=== PATIENT | female | born 1975 | race African-American/Black ===

== ENCOUNTER → 2020-06-29 10:12 | Outpatient (BNVA) | payer SELFPAY | PROVIDERS: PCP Internal Medicine; Visit Provider Nurse Practitioner | DX: Z76.89 Persons encountering health services in other specified circumstances (principal) ==

== ENCOUNTER 2020-11-30 10:12 | Emergency (ER) | payer OTHER, SELFPAY ==
[2020-11-30 10:34] VITALS: PULSE 77; RESP 18; TEMP 36.7; O2SAT 100; BMI 32.5
--- NOTE | 2020-11-30 12:31 | ED_ITS ---
HPI - Skin/Abscess/Foreign Bdy General Chief complaint: Skin/Abscess/Foreign Body Stated complaint: lump Time Seen by Provider: 11/30/20 10:17 Source: patient Mode of arrival: ambulatory Limitations: no limitations History of Present Illness complaint: abscess/boil Onset (ago): day(s) (Started on 11/24/2020 worse today) Tetanus up to date: no Location: head (Above right ear) Severity: moderate Quality: aching and constant Pain Consistency: constant Relieving factors: none Exacerbating factors: palpation Context: none Associated symptoms: denies other symptoms Treatments prior to arrival: other (Was seen by PCP and urgent care and placed on p.o. doxycycline and Keflex and is taking as prescribed and no symptomatic relief) Related Data Home Medications Medication Instructions Recorded Confirmed cholecalciferol (vitamin D3) 1 cap PO BEDTIME 09/13/20 11/27/20 acyclovir 400 mg tablet 400 mg PO BID 11/28/20 Previous Rx's Medication Instructions Recorded cephalexin 500 mg capsule 500 mg PO Q12H 10 Days #20 cap 11/27/20 cephalexin 500 mg capsule 500 mg PO QID 7 Days #28 cap 11/28/20 doxycycline hyclate 100 mg tablet 100 mg PO BID 7 Days #14 tab 11/28/20 acetaminophen [Tylenol Extra 1,000 mg PO QID PRN #14 tab 11/30/20 Strength] ibuprofen 800 mg PO Q8H PRN #14 tab 11/30/20 oxycodone 5 mg PO BID PRN #10 tab 11/30/20 Allergies Allergy/AdvReac Type Severity Reaction Status Date / Time No Known Allergies Allergy Verified 11/28/20 11:09 Review of Systems Review of Systems: Constitutional : No Fever, No Chills, Cardiovascular : No Chest Pain, No SOB Respiratory : No Dyspnea Gastrointestinal : No abdominal pain Musculoskeletal : No Joint Swelling Skin : positive skin abscess/cellulitis, No Foreign bodies, No rash,No la cerations Neuro : No Weakness, No Numbness/tingling Psych : No SI/HI/thoughts of self injury Yes all other systems are reviewed and are negative [facility] Past Medical History Attestation statement: The following information was validated with the patient. Medical History Anemia Chronic pain Genital herpes H/O tinea corporis History of positive PPD IBS (irritable bowel syndrome) Obesity Skin lesion of scalp Surgical History H/O right wrist surgery Family History Family History Father No problems noted. Mother Colon cancer Medical history non-contributory Brother No problems noted. Sister No problems noted. Sister No problems noted. Son No problems noted. Daughter No problems noted. Maternal Grandmother HTN (hypertension) Maternal Aunt HTN (hypertension) Social History Social History Household Members: Family Alcohol intake: current Alcohol intake frequency: does not drink Smoking Status: Never smoker Advance Directives: Yes Advance Directives Information Provided: No Advance Directives on File: No Physical Exam Vital Signs: Vital Signs: Last Vital Signs Temp 98.1 F 11/30/20 10:34 Pulse 77 11/30/20 10:34 Resp 18 11/30/20 10:34 Pulse Ox 100 11/30/20 10:34 Body Mass Index 32.5 vital signs have been reviewed as normal and appeared to be correct. Blood pressure normal. Heart rate normal. Respiration rate normal. Temperature normal. Oxygen saturation normal. Appearance: Alert. Oriented X3. No acute distress. Head: Normal external exam. Normocephalic. Atraumatic. No Brito signs noted. No raccoon eyes noted Eyes: PERRLA. EOMI. Conjunctiva and sclera normal. Eyelids normal. ENT: EAC normal. TM's Normal. Pharynx normal. Uvula midline. Moist mucous membranes. Neck: Normal inspection. Neck supple. FROM. No adenopathy. Thyroid Normal. No meningeal signs. No neck mass noted. CVS: Normal heart rate and rhythm. Heart sound normal. No murmurs noted. Pulses normal throughout. Respiratory: No respiratory distress. Painless inspiration. Breath sounds normal. No wheezes/rales/rhonchi noted. Chest nontender. No accessory muscle usage noted or decreased air movement noted. Back: Full range of motion noted. Skin: To the scalp right above the ear patient has moderate erythema and soft tissue swelling and fluctuance consistent with an abscess. No streaking. The rest of the Skin is warm and dry. Normal skin color. Normal skin turgor. No rashes/lesions/lacerations noted. Extremities: Extremities exhibit normal range of motion. Extremities nontender. Neuro: Oriented X 3. No motor deficit. No sensory deficit. Reflexes normal. Procedures Abscess I/D Site: scalp Side (if applicable): right Local Anesthetic: lidocaine 1% Amount of anesthesia used (mL): 3 Technique: needle aspiration and incised with blade Amount of fluid expressed (mL): 4 Sent for culture/gram staining?: No Irrigation: Yes Packing used?: none Complications: other (No complications patient tolerated procedure well.) MDM - Skin/Abscess/Foreign Bdy Medical Records Attestation: I reviewed the patient's medical records. Discharge Plan Discharge Clinical Impression: Abscess, Cellulitis Patient Disposition: Home, Self-Care Instructions: Cellulitis (ED), Abscess (ED) Prescriptions: New ibuprofen 800 mg tablet 800 mg PO Q8H PRN (Reason: pain) Qty: 14 RF: 0 oxycodone 5 mg tablet 5 mg PO BID PRN (Reason: pain) Qty: 10 RF: 0 acetaminophen [Tylenol Extra Strength] 500 mg tablet 1,000 mg PO QID PRN (Reason: fever or pain) Qty: 14 RF: 0 No Action cephalexin 500 mg capsule 500 mg PO Q12H 10 Days Qty: 20 RF: 0 cholecalciferol (vitamin D3) 50 mcg (2,000 unit) capsule 1 cap PO BEDTIME RF: 0 acyclovir 400 mg tablet 400 mg PO BID RF: 0 cephalexin 500 mg capsule 500 mg PO QID 7 Days Qty: 28 RF: 0 doxycycline hyclate 100 mg tablet 100 mg PO BID 7 Days Qty: 14 RF: 0 Referrals: Cammy Mujica MD [Primary Care Provider] - 2 days Stand Alone Forms: Work/School Release Discharge Date/Time: 11/30/20 12:41 Print Language: Maltese
== END 2020-11-30 12:41 | disposition home or self-care (01) ==
PROVIDERS: Emergency Provider Emergency Medicine; PCP Internal Medicine
DX: L02.811 Cutaneous abscess of head [any part, except face] (principal); L03.811 Cellulitis of head [any part, except face]
CPT/HCPCS: 10060; 99283; 99284

== ENCOUNTER → 2021-01-05 09:33 | Outpatient (BNVA) | payer OTHER, SELFPAY | PROVIDERS: PCP Internal Medicine; Referring Provider Internal Medicine; Visit Provider Surgery | DX: L72.0 Epidermal cyst (principal); D23.9 Other benign neoplasm of skin, unspecified | CPT/HCPCS: 99202 ==

== ENCOUNTER 2021-01-26 12:41 | Outpatient (REF) | payer OTHER, SELFPAY ==
[2021-01-26 12:48] VITALS: BMI 30.2
[2021-01-26 12:49] VITALS: BP 125/81; PULSE 72; RESP 16; TEMP 36.3; O2SAT 99
--- NOTE | 2021-01-26 13:12 | P.OP_ITS ---
Operative Note Operative Note Date of Service: 01/26/21 Narrative: Preop diagnosis: Multiple skin lesions, right neck and posterior neck Postop diagnosis: As above Procedure: Excision and cauterization of multiple skin lesions, right neck and posterior neck under local anesthesia Surgeon: Randall Whaley MD The patient is a 45 year female who was sent to the office because of nipple skin lesions the right neck and posterior neck. She pointed to 3 small lesions on the right neck measuring about 1 mm to 3 mm in size that appeared to be papillomatous. She also had 1 lesion on the posterior neck at the occipital area of the scalp, about 4 mm in size. She wanted all these removed. She understood the technique of excision and cauterization under local anesthesia and she was aware of the risks, benefits, and alternatives She was brought to the operating room placed in reclining position. The area of the lesions in the right neck was prepped and draped. Lidocaine 1% was used for local anesthesia. I excised 1 of the bigger lesions using Metzenbaum scissors and this was sent as specimen. I cauterized the excised area for hemostasis using an i-STAT. There were about 3 other smaller lesions about 1 mm in size which were cauterized. I then turned the patient left lateral decubitus position. I prepped and draped the area of the lesion on the posterior neck. I infiltrated this again with lidocaine 1%. I excised this using scissors from its narrow base. I c auterized the excision area with i-STAT. The procedure was then completed. She tolerated procedure well. There were no complications noted. She was given wound care instructions.
--- NOTE | 2021-01-26 13:16 | P.BOP_ITS ---
Brief Operative Note Date of Service: 01/26/21 Pre-op diagnosis: Multiple skin lesions, right neck and posterior neck Post-op diagnosis: same Procedure: Excision and cauterization a multiple skin incisions, right neck, posterior neck under local anesthesia Surgeon: Randall Whaley MD Anesthesia: local Was an Brickmason Supervisor used for this Procedure?: No Estimated blood loss (mL): 0 Pathology: other (Skin lesions) Condition: stable Disposition: other (Home)
== END 2021-01-26 12:42 | disposition home or self-care (01) ==
LOC: HO.MS 12:41
PROVIDERS: PCP Internal Medicine; Visit Provider Surgery
PROC: (CPT 11420; principal; 2021-01-26 13:00)
DX: D23.4 Other benign neoplasm of skin of scalp and neck (principal)
CPT/HCPCS: 11420 ×2; 88304; 88305

== ENCOUNTER 2021-01-30 09:59 | Outpatient (REF) | payer OTHER, SELFPAY ==
--- NOTE | ~2021-01-30 | US_ITS ---
EXAMINATION: US PELVIS, LIMITED/FOLLOW UP CLINICAL INFORMATION: Left lower quadrant pain. COMPARISON: None. TECHNIQUE: Limited ultrasound imaging through the left lower quadrant was performed. FINDINGS: Imaging through the left lower quadrant reveals an ovary measuring 2.6 x 2.4 x 1.8 cm. It appears unremarkable. The left kidney measures 9.9 cm and appears unremarkable. There is no soft tissue mass, hernia or abnormal vascularity in the left lower quadrant. US/US pelvic limited IMPRESSION: Unremarkable left lower quadrant exam.
--- NOTE | ~2021-01-30 | XR_ITS ---
EXAMINATION: XR ABDOMEN WITH DECUBITUS VIEWS CLINICAL INDICATION: Left lower quadrant pain COMPARISON: None TECHNIQUE: Supine and upright views of the abdomen and pelvis FINDINGS: There is stool throughout the colon suggestive of constipation. There are no dilated bowel to suggest obstruction. There is no evidence of free air. There is an IUD in the pelvis. There are no calcifications. Bony structures are unremarkable. XR/XR abdomen w decubitus IMPRESSION: Constipation.
== END 2021-01-30 10:00 | disposition home or self-care (01) ==
LOC: HO.US 09:59
PROVIDERS: Visit Provider Nurse Practitioner
DX: R10.32 Left lower quadrant pain (principal); R10.9 Unspecified abdominal pain; R14.0 Abdominal distension (gaseous); D23.9 Other benign neoplasm of skin, unspecified
CPT/HCPCS: 74021; 76857

== ENCOUNTER → 2021-02-03 11:48 | Outpatient (BNVA) | payer OTHER, SELFPAY | PROVIDERS: PCP Internal Medicine; Referring Provider Internal Medicine; Visit Provider Nurse Practitioner | DX: R10.32 Left lower quadrant pain (principal); R10.9 Unspecified abdominal pain; R14.0 Abdominal distension (gaseous); K63.89 Other specified diseases of intestine; Z80.0 Family history of malignant neoplasm of digestive organs | CPT/HCPCS: 99212 ==

== ENCOUNTER → 2021-02-06 13:15 | Outpatient (BNVA) | payer OTHER, SELFPAY | PROVIDERS: PCP Internal Medicine; Referring Provider Internal Medicine; Visit Provider Surgery | DX: Z48.3 Aftercare following surgery for neoplasm (principal); Z86.018 Personal history of other benign neoplasm | CPT/HCPCS: 99212 ==

== ENCOUNTER 2021-02-23 13:56 | Outpatient (REF) | payer OTHER, SELFPAY ==
[2021-02-23 16:36] LABS: MANUAL DIFF FLAG NO
[2021-02-23 16:39] LABS: Basophils Percent Auto 0.8 % (0-2); Eosinophils Absolute Auto 0.1 X10*3/uL (0.0-0.4); Eosinophils Percent Auto 2.3 % (0-4); Hematocrit 38.3 % (37-47); Hemoglobin 12.1 g/dl (12.0-16.0); Imm Gran Abs Auto 0.01 X10*3/uL (0.00-0.03); Imm Gran Pct Auto 0.2 % (0.0-0.4); Lymphocytes Absolute Auto 2.6 X10*3/uL (1.2-4.9); Lymphocytes Percent Auto 55.8 % (20-40); Mean Corpuscular HGB Conc 31.6 g/dl (31.0-35.0); Mean Corpuscular Hemoglobin 30.8 pg (27.0-33.0); Mean Corpuscular Volume 97.5 fL (80-98); Mean Platelet Volume 11.5 fL (9.4-12.3); Monocytes Absolute Auto 0.2 X10*3/uL (0.1-1.2); Monocytes Percent Auto 5.1 % (2-11); Neutrophils Absolute Auto 1.7 X10*3/uL (2.0-8.3); Neutrophils Percent Auto 35.8 % (45-73); Platelet Count 232 X10*3/uL (160-400); Red Blood Count 3.93 X10*6/uL (4.20-5.50); Red Cell Distribution Width 11.9 % (11.0-16.0); White Blood Count 4.7 X10*3/uL (4.8-10.8)
[2021-02-23 17:26] LABS: Alanine Aminotransferase 38 U/L (0-31); Anion Gap 11 (12-20); Aspartate Amino Transferase 27 U/L (5-31); Blood Urea Nitrogen 5 mg/dL (9-16); Calcium 9.4 mg/dL (8.4-10.2); Carbon Dioxide 28 mmol/L (22-29); Chloride 106 mmol/L (96-108); Cholesterol 153 mg/dL; Estimated Glomerular Filt Rate > 60; Glucose Fasting 81 mg/dL (60-99); HDL Cholesterol 41 mg/dL; LDL Cholesterol Calculated 100 mg/dl; Potassium 4.3 mmol/L (3.3-5.1); Sodium 141 mmol/L (135-145); Triglycerides 60 mg/dL
[2021-02-23 17:46] LABS: Vitamin D 25-OH Total 24.3 ng/mL (>30)
== END 2021-02-23 13:57 | disposition home or self-care (01) ==
LOC: HO.HMGCLDS 13:56
PROVIDERS: PCP Internal Medicine; Visit Provider Internal Medicine
DX: Z00.00 Encounter for general adult medical examination without abnormal findings (principal); K58.1 Irritable bowel syndrome with constipation; K63.89 Other specified diseases of intestine; I10 Essential (primary) hypertension; Z80.0 Family history of malignant neoplasm of digestive organs; Z86.2 Personal history of diseases of the blood and blood-forming organs and certain disorders involving the immune mechanism
CPT/HCPCS: 36415; 80048; 80061; 82306; 84450; 84460; 85025

== ENCOUNTER 2021-03-09 11:02 | Day surgery (SDC) | payer OTHER, SELFPAY ==
[2021-03-02 12:26] VITALS: BMI 31.0
[2021-03-09 11:21] VITALS: BP 128/79; PULSE 63; RESP 16; TEMP 36.4; O2SAT 99
[2021-03-09 11:21] LABS: Urine Pregnancy NEGATIVE (NEGATIVE)
[2021-03-09 11:22] LABS: UPreg QC Valid YES
[2021-03-09] MEDS: Lactated Ringers 1,000 ML 50 ML IVCONT (11:37)
--- NOTE | 2021-03-09 13:17 | P.CONAN_ITS ---
[facility] Active Problems Active Problems: All Active Problems (Updated 02/23/21 @ 13:48 by Cammy richardson MD) Irritable bowel syndrome with constipation (Acute) Hx of iron deficiency anemia (Acute) Small intestinal bacterial overgrowth (SIBO) (Acute) Skin papilloma (Acute) Epidermal inclusion cyst (Acute) Abscess (Acute) Skin lesion of scalp (Acute) LLQ abdominal pain (Acute) Abdominal cramping (Acute) Abdominal bloating (Acute) Family history of colon cancer (Acute) Past Medical History Medical History Anemia Chronic pain Epidermal inclusion cyst Genital herpes H/O tinea corporis History of positive PPD Hx of iron deficiency anemia IBS (irritable bowel syndrome) Irritable bowel syndrome with constipation Obesity Skin lesion of scalp Skin papilloma Family History Family History Father No problems noted. Mother Colon cancer Medical history non-contributory Brother No problems noted. Sister No problems noted. Sister No problems noted. Son No problems noted. Daughter No problems noted. Maternal Grandmother HTN (hypertension) Maternal Aunt HTN (hypertension) Family history of problems with anesthesia: Yes Surgical History Surgical History H/O right wrist surgery History of local excision of skin lesion Hx of neck surgery History of Problems with Anesthesia: No Social History Social History Household Members: Family Are you a primary healthcare consultant to a significant other at home: No Do you presently have visiting nurse or other home services: No Alcohol intake: current Alcohol intake frequency: does not drink Patient Tobacco Use Status: Never used Tobacco e-Cigarette/Vaping Use: Never Used Second Hand Smoke Exposure: No Use of substances other than those prescribed or required for medical reasons: No Are you DNR?: No Advance Directives: No Advance Directives Information Provided: No Advance Directives on File: No Meds Allergies Allergy/AdvReac Type Severity Reaction Status Date / Time No Known Allergies Allergy Verified 03/02/21 12:25 Active Medications: Current Medications Generic Name Dose Route Start Last Admin Trade Name Freq PRN Reason Stop Dose Admin Lactated Ringer's 1,000 mls @ 50 mls/hr 03/09/21 10:30 03/09/21 11:37 Lr IVCONT 50 mls/hr .Q20H IRVIN Administration Home Medications Medication Instructions Recorded Confirmed Last Taken Type cholecalciferol (vitamin D3) 50 1 cap PO BEDTIME 09/13/20 03/02/21 Unknown History mcg (2,000 unit) capsule dicyclomine 20 mg tablet 1 tab PO TID 03/02/21 03/02/21 Unknown History Exam Exam Date and Time: March 09, 2021 1317 Height,Weight and Vital Signs: Height 5 ft 2 in Weight 169 lb 12.095 oz Last Vital Signs Temp 97.5 F 03/09/21 11:21 Pulse 63 03/09/21 11:21 Resp 16 03/09/21 11:21 BP 128/79 03/09/21 11:21 Pulse Ox 99 03/09/21 11:21 Pertinent Lab Results Pertinent Lab Results: Laboratory Tests 03/09/21 11:10 Urine Test NEGATIVE Airway Mallampati Class: III TM Dist: >3cm Neck ROM: Full Assessment and Plan Assessment Anesthesia Assessment: Anesthesia Plan Discussed and Chart Reviewed Final Anesthetic Review Family History of Problems with Anesthesia: Yes History of Problems with Anesthesia: No NPO: Yes ASA Class: II Final Preanesthetic Review: No Changes in Pt Med Stat, Meds/Allgs Chart Reviewed, Consent Obtained/Reviewed and Anes Risks/Benef Reviewed Patient Risk: Low Procedure Risk: Low Anesthetic Plan Anesthetic Plan: MAC: Disposition: Standard PACU
--- NOTE | 2021-03-09 14:09 | MHC.SHP ---
Pre-Procedural Eval Section A Date of Service: 03/09/21 Section B Chief Complaint: hx of malignant neoplasm of digestive organs Relevant Family History (Specify if Yes): Yes Relevant Social History: None Present Medications: see Short Stay Collaborative assessment Medical History: Significant History (Anemia Chronic pain Epidermal inclusion cyst Genital herpes H/O tinea corporis History of positive PPD Hx of iron deficiency anemia IBS (irritable bowel syndrome) Irritable bowel syndrome with constipation Obesity Skin lesion of scalp Skin papilloma) History of Previous Operations: Relevant previous surgery/procedure and date(s) (H/O right wrist surgery History of local excision of skin lesion Hx of neck surgery) Allergies: Allergies Allergy/AdvReac Type Severity Reaction Status Date / Time No Known Allergies Allergy Verified 03/02/21 12:25 Review of Systems Sugical H&P ROS: Negative: Constitution, Cardiovascular, Respiratory, Neurological, Psychiatric, Hem-Onc, Allergic/Immunologic, Gastrointestinal, Genitourinary, Musculoskeletal, Integumentary, Endocrine and Eyes/Ears/Nose/Throat Exam Surgical H&P Exam: Normal: HEENT, Normal: Heart, Normal: Lungs, Normal: Extremities, Normal: Abdomen, Normal: Skin and Normal: Neurological Plan Diagnosis/Plan: Unchanged I have reviewed the history and physical and performed a pertinent physical examination on my patient. No changes have occurred unless specified.
--- NOTE | 2021-03-09 14:11 | PM.OP ---
Brief Operative Note Date of Service: 03/09/21 Pre-op diagnosis: abdo pain Post-op diagnosis: same Procedure: see op note Surgeon: Poppy Jean-Baptiste MD Anesthesia: MAC Was an Fish Hatchery Laborer used for this Procedure?: No Estimated blood loss (mL): 0 Condition: stable Disposition: PACU
--- NOTE | 2021-03-09 14:12 | W.PM.OPN ---
Operative Note Operative Note Date of Service: 03/09/21 Narrative: Operative Information Procedure Description: Colonoscopy COLONOSCOPY Instrument: Olympus variable stiffness pediatric scope 190L Colonoscopy Monitoring: Vital signs and clinical assessment, continuous EKG monitoring, Pulse oximetry, Carbon Dioxide monitoring and blood pressure monitoring were done throughout the procedure. Colon withdrawal time was 10 minutes. Procedure: The patient was placed in the left lateral decubitis position and pre-procedure medications were administered. After a digital rectal examination of the ano-rectum, the video colonoscope was inserted into the rectum and advanced through the colon to the cecum/TI. The colonoscope was slowly withdrawn in a retrograde panoramic fashion and the colon mucosa was carefully examined including a retroflexed view of the rectum. Findings and interventions are described below. Procedure Difficulty:easy Findings: Terminal Ileum-normal, bx taken random colon bx taken Cecum:normal Ascending Colon: normal Transverse Colon -normal Descending Colon: 6-7 mm sessile polyp removed with forceps Sigmoid Colon: normal Rectum: Retroflexion with small internal hemorrhoids, grade I Anorectum - normal Colon preparation: [place] Bowel Preparation Scale Right colon; 2 Transverse colon: 2 Left colon; 3 (0 = Unprepared colon segment with mucosa not seen due to solid stool that cannot be cleared. 1 = Portion of mucosa of the colon segment seen, but other areas of the colon segment not well seen due to staining, residual stool and/or opaque liquid. 2 = Minor amount of residual staining, small fragments of stool and/or opaque liquid, but mucosa of colon segment seen well. 3 = Entire mucosa of colon segment seen well with no residual staining, small fragments of stool or opaque liquid) Impression and Post Procedure Diagnosis: polyp internal hemorrhoids diverticular disease Plan: High fiber diet leaflet Avoid straining at stool, epsom salts and sitz bath, anusol supps or cream Repeat Colonoscopy in 5 years due to polyp and FH of CRC or earlier if clinically indicated Above findings were reviewed with the patient and relevant handouts were provided if indicated.
[2021-03-09 14:40] VITALS: BP 112/65; PULSE 77; RESP 16; TEMP 36.1; O2SAT 99
[2021-03-09 14:55] VITALS: BP 126/74; PULSE 79; RESP 16; TEMP 36.1; O2SAT 99
== END 2021-03-09 15:40 | disposition home or self-care (01) ==
PROVIDERS: PCP Internal Medicine; Visit Provider Internal Medicine Gastroenterology
PROC: 0DJD8ZZ Inspection of Lower Intestinal Tract, Via Natural or Artificial Opening Endoscopic (ICD-10-PCS; CPT 45378; principal; 2021-03-09 12:10)
DX: Z12.11 Encounter for screening for malignant neoplasm of colon (principal); Z80.0 Family history of malignant neoplasm of digestive organs; K63.5 Polyp of colon; K57.30 Diverticulosis of large intestine without perforation or abscess without bleeding; K64.0 First degree hemorrhoids; K58.1 Irritable bowel syndrome with constipation; K63.89 Other specified diseases of intestine; R14.0 Abdominal distension (gaseous); D64.9 Anemia, unspecified; K21.9 Gastro-esophageal reflux disease without esophagitis; B00.9 Herpesviral infection, unspecified; Z79.899 Other long term (current) drug therapy; Z97.5 Presence of (intrauterine) contraceptive device
CPT/HCPCS: 45380; 81025; 88305

== ENCOUNTER → 2021-03-23 11:45 | Outpatient (BNVA) | payer OTHER, SELFPAY | PROVIDERS: PCP Internal Medicine; Visit Provider Nurse Practitioner | DX: K58.1 Irritable bowel syndrome with constipation (principal); K63.89 Other specified diseases of intestine; D12.6 Benign neoplasm of colon, unspecified; R10.32 Left lower quadrant pain; R10.9 Unspecified abdominal pain; R14.0 Abdominal distension (gaseous); Z80.0 Family history of malignant neoplasm of digestive organs | CPT/HCPCS: 99212 ==

== ENCOUNTER 2021-04-03 | Outpatient (REF) | payer OTHER, SELFPAY ==
--- NOTE | ~2021-04-03 | FL_ITS ---
EXAMINATION: XR BARIUM SWALLOW CLINICAL INFORMATION: Dysphagia. COMPARISON: None TECHNIQUE: Routine modified swallow was performed and lateral upright position and present to C6 therapist with diffuse consistencies of liquid and solid barium coated food. FINDINGS: On oral administration of thin, apple puree,, pudding, solid mass or thickening and barium coated cookie there is normal oral mastication and propagation of bolus from the oral cavity through the pharynx into the esophagus without obstruction or narrowing. No laryngeal penetration or aspiration seen. No obstruction. FLUOROSCOPY TIME: 1.1 minute DOSE AREA PRODUCT: 1.775 uGy-m2 (microgray-meter squared) FL/FL barium swallow modified IMPRESSION: Unremarkable modified barium swallow exam. Correlate with speech therapy results
--- NOTE | 2021-04-03 17:12 | MHC.SL.IMP ---
Date of Plan of Treatment: 04/03/21 Onset of Symptoms/Illness: 02/01/21 Date Treatment Started: 04/03/21 Admitting Diagnosis: Anemia Chronic pain Dysphagia Epidermal inclusion cyst Genital herpes Positive PPD Iron deficiency anemia Irritable bowel syndrome Obesity Right shoulder pain Skin lesion of scalp Skin papilloma Primary Speech & Language Diagnosis: R13.12 Oropharyngeal Phase Dysphagia Reason for Today's Visit: 37076 Modified Barium Swallow Study Pre-evaluation Dietary Consistencies: Regular Pre-evaluation Liquid Consistency: Thin Pre-evaluation Medication Administration: Whole with Liquid Medical History: Modified Barium Swallow Study Fluoroscopic Evaluation of Swallowing Function CPT Code 61243 Evaluation Year: 2020 Reason for Study: Patient reports globus sensation. Referring Physician: Cammy Mujica MD Evaluating Clinician: Radha Villa M.A., CCC-CR[employer] Study Number: 1 Patient Name: Oanh Huitron Status: Outpatient, Ambulatory Age: 45 Gender: Female MEDICAL HISTORY: Year of Onset or Diagnosis: 2020 Comorbidities: Anemia Chronic pain Dysphagia Epidermal inclusion cyst Genital herpes Positive PPD Iron deficiency anemia Irritable bowel syndrome Obesity Right shoulder pain Skin lesion of scalp Skin papilloma Current (pre-evaluation) Intake/Diet: Route: PO Diet Grade: Regular Liquid Consistencies: Thin Pre-Study Functional Oral Intake Scale (FOIS): 7- Total oral intake with no restrictions Pain: None reported at time of study Oral Motor Exam Facial Symmetry: Symmetrical Mouth Occlusion: Normal Oral-Facial Teeth Characteristics: Intact/Normal Oral-Facial Lip Pucker Description: Normal Oral-Facial Smile (Lips) Description: Normal Oral-Facial Puff Cheeks Description: Normal Tongue Size: Normal Tongue Excursion Description: Normal Tongue Range of Movement Description: Normal Tongue Speed of Movement Description: Normal Tongue Strength of Movement (against opposing pressure): Normal Tongue Movement Characteristics: Normal/Absent Is patient able to manage secretions?: Yes Food and Liquid Trials: Oral Impairment: Lip Closure: 0=No labial escape Oral Impairment: Tongue Control During Bolus Hold: 0=Cohesive bolus between tongue to palatal seal Oral Impairment: Bolus Preparation/Mastication: 0=Timely and efficient chewing and mashing Oral Impairment: Bolus Transport/Lingual Motion: 0=Brisk tongue motion Oral Impairment: Oral Residue: 0=Complete oral clearance Oral Impairment:Initiation of Pharyngeal Swallow: 2=Bolus head at posterior laryngeal surface of epiglottis Pharyngeal Impairment: Soft Palate Elevation: 0=No bolus between soft palate (SP)/pharyngeal wall (PW) Pharyngeal Impairment: Laryngeal Elevation: 1=Partial thyroid cartilage/arytenoids to epiglottic petiole movement Pharyngeal Impairment: Anterior Hyoid Excursion: 1=Partial anterior movement Pharyngeal Impairment: Epiglottic Movement: 0=Complete inversion Pharyngeal Impairment: Laryngeal Vestibular Closure:: 0=Complete: no air/contrast in laryngeal vestibule Pharyngeal Impairment: Pharyngeal Stripping Wave: 0=Present: complete Pharyngeal Impairment: Pharyngeal Contraction: Did not test Pharyngeal Impairment: Pharyngoesophageal Segment Openin=Complete distension and complete duration: no obstruction of flow Pharyngeal Impairment: Tongue Base (TB) Retraction: 2=Narrow column of contrast/air between TB and posterior PW Pharyngeal Impairment: Pharyngeal Residue: 0=Complete pharyngeal clearance Pharyngeal Impairment: Esophageal Clearance Upright Position: 0=Complete clearance: esophageal coating Impressions and Recommendations Clinical Observations: OBJECTIVE: Time-out: performed at 02:45 Evaluation Start: 02:30; Stop: 02:40 Patient Positioning: Standing Viewing Planes: LATERAL ONLY Contrast: MBSImP? Standardized Protocol using commercially prepared, standardized Barium viscosities, including: Varibar? THIN LIQUID (40% w/v, <15 cps) , 1/2 Shortbread Cookie (1 x1 x.25 ) MBSImP ID: [id number] MBSImP Results: Lip closure for intraoral bolus containment resulted in no labial escape. Tongue control during bolus hold maintained a cohesive bolus held between tongue to palate seal. Bolus preparation and mastication resulted in timely and efficient chewing and mashing. Bolus transport/lingual motion was with brisk tongue motion. Oral residue was not observed. There was complete oral clearance. Initiation of the pharyngeal swallow occurred as the bolus head was at the posterior laryngeal surface of the epiglottis. Soft palate elevation resulted in no bolus between the soft palate and the pharyngeal wall. Laryngeal elevation was decreased, with partial superior movement of the thyroid cartilage/partial approximation of the arytenoids to the epiglottic petiole. Anterior hyoid excursion demonstrated partial anterior movement. Epiglottic movement resulted in complete inversion. Laryngeal vestibular closure was complete, as indicated by no air or contrast within the laryngeal vestibule at the height of the swallow. Pharyngeal stripping wave was present and complete. Pharyngeal contraction could not be determined due to logistical reasons not related to physiologic impairment. Pharyngoesophageal segment opening was completely distended for complete duration with no obstruction of bolus flow. Tongue base retraction allowed a narrow column of contrast or air between the retracted tongue base and the posterior pharyngeal wall. Pharyngeal residue was not present. There was complete pharyngeal clearance. Esophageal clearance in the upright position was complete, with only a coating of contrast, if any. Oral Impairment Score: 2 Pharyngeal Impairment Score: 4 (absence of score, component 13) Esophageal Impairment Score: 0 Laryngeal Penetration and Aspiration: Neither penetration nor aspiration was observed in today's study with Cookie, Thin. ASSESSMENT: This exam was conducted by radiologist and speech language pathologist. Patient was standing for lateral view only. Patient trialed the following liquid and solid consistencies: -5 mL thin liquid barium -cup sip with bolus hold thin liquid barium -consecutive cup sip thin liquid barium -pureed solid (applesauce mixed with barium paste) -ground solid (chicken salad mixed with barium paste) -regular solid (Bree Doone cookie coated with barium paste) -barium tablet swallowed with thin liquid barium No evidence of aspiration or penetration during this exam with solids and liquids. Good oral and pharyngeal clearance. Swallow function deemed within functional limits based on observations made during this exam. Further intervention is not warranted. Patient is recommended to resume unmodified diet regular solids and thin liquids. Patient reports globus sensation with certain foods. She may benefit from consult with G.I. and ENT. Liquid Intake Recommendation: Thin Liquid Intake Strategies: Small Sips Dietary Recommendations: Regular Medication Administration: Whole with Liquid Compensatory Strategies Recommended: Sitting Upright (90 deg) Small Bites and Sips Alternate Liquids/Solids Rate of Ingestion Change Supervision during eating and or drinking: None Needed Recommendation for Speech Therapy: NA:Typical Evaluation Text Comment: Intake Recommendations: Route: PO Diet Grade: Regular Liquid Consistencies: Thin Post-Study Functional Oral Intake Scale (FOIS): 7- Total oral intake with no restrictions Suggested Referrals: The patient might benefit from a referral to: Gastroenterology Indication for Referral: Patient reports globus sensation with spicy food and crumbly consistencies. Otolaryngology Indication for Referral: Patient reports globus sensation. Therapy Recommendations: Therapy will be discontinued Prognosis for Improvement: The prognosis for the patient to meet nutritional needs by mouth is excellent Clinician - Supplemental, Miscellaneous Communication: It is important to note MBSS objective studies are snapshots in time and Patient function might vary with factors such as time of day or concomitant medical conditions. For this reason, the final treatment plan for this patient should rest with their medical care team. Additional recommendations should be considered with the totality of the Patient in mind. Thank for the opportunity to participate in the care of this patient. If you have any questions about the content of this report, please contact the [facility] at [facility]. Education: Education regarding findings from today's study and plans for therapy were provided to Patient only through Verbal Instruction. Understanding was expressed by the Patient only. Voice Over Artist Clinician/Clinical Fellow: No Supervisory Statement: N/A Speech Language Pathologist: Radha Villa M.A., CCC-[employer]
== END 2021-04-03 00:01 | disposition home or self-care (01) ==
LOC: HO.XRAY
PROVIDERS: Visit Provider Internal Medicine
DX: R13.10 Dysphagia, unspecified (principal)
CPT/HCPCS: 74230; 92611

== ENCOUNTER 2021-04-28 14:00 | Outpatient (RCR) | payer OTHER, SELFPAY ==
--- NOTE | 2021-04-20 19:03 | MHC.PT.EP ---
[facility] [place] Office [place] Office [place] Office [address] Maxine Jin [address] [phone] F: [phone] F: [phone] F: [phone] F: [phone] Physical Therapy Plan of Care Date of Evaluation: Date of Surgery: n/a Diagnosis: pain R sh Assessment: Pt is a 45 yo/ F referred to PT for eval/treat of her R sh pain. signs and symptoms are consistent w/ R shoulder dysfunction resulting decreased ability and tolerance to perform overhead activities such as reaching or placing weighted objects on a high self, decreased ability to perform her ADLs such as washing her hair and back, putting on shirt and pants, decreased ability to pick heavy objects, as well as decreased tolerance to lay on the involved side. Functional limitation mentioned above are secondary to restricted ROM, decreased strength, postural impairment, hypomobility of T-spine, and pain. pt is deemed appropriate to receive skilled PT to address her physical impairments and improve her functional abilities. Frequency and Duration: The patient will be seen 2x/wk for 5wk Short Term Goals: Initiate HEP w/ evidence of compliance pt will report less than 4/10 pain w/ activity Fci Goals: pt will be able to wash her hair w/ >2/10 pain pt will be able to place weighted objects on the high self w/ >2/10 pain pt will be able to carry at least 10lb weight w/ less than 2/10 pain. pt will improve her SPADI score by at least 2 MDC; initial score 87/130 Treatment Plan: Modalities to reduce pain, spasms and effusion. Manual therapy to restore motion and function. Therapeutic exercise to improve strength and flexibility. Neuromuscular re-education for posture and balance. Therapeutic activities to return to functional activities of daily living. Electronically signed by: Santino Mccormack PT Please sign and return to therapist. Thank you for your referral.
--- NOTE | 2021-12-13 09:35 | MHC.PT.DC ---
[facility] [place] Office [place] Office [place] Office [address] Maxine Jin [address] [phone] F: [phone] F: [phone] F: [phone] F: [phone] Physical Therapy Discharge Report Diagnosis: pain R sh Date of Surgery: n/a Date of Evaluation: 04/20/21 Date of Discharge: Treatments to Date: 3 Cancellations to Date: No Shows to Date: Discharge Status: Achieved Goals Improved Function Independent with HEP Patient Elected to Stop Discharge Summary: Per last note PT continued performing GHJ mob, PA mob of T spine, and thoracic manip during therapy- pt gained about 95% of her ROM back following the manual tx. reports that her arm does not feel like weight . following manual therapy, pt performed strengthening ther/ex to which pt responded with appropriate fatigue. cont progressing her POC. Patient did not return to PT, DC to HEP. Electronically signed by: Gladis Esparza PT Please sign and return to therapist. Thank you for your referral.
== END 2021-12-13 09:36 | disposition home or self-care (01) ==
LOC: HO.PTCHIC 14:00
PROVIDERS: PCP Internal Medicine; Visit Provider Internal Medicine
DX: M25.511 Pain in right shoulder (principal)
CPT/HCPCS: 97110; 97140; 97161

== ENCOUNTER 2021-10-26 10:00 | Outpatient (RCR) | payer OTHER, SELFPAY ==
--- NOTE | 2021-10-20 12:51 | MHC.PT.EP ---
[facility] [place] Office [place] Office [place] Office [address] Maxine Jin [address] [phone] F: [phone] F: [phone] F: [phone] F: [phone] Physical Therapy Plan of Care Date of Evaluation: Date of Surgery: Diagnosis: R shoulder synovitis/ tenosynovitis. 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 Pt is deemed an appropriate candidate to receive skilled PT in order to address her physical limitations to improve her functional ability. Frequency and Duration: The patient will be seen 2 x / wk x 5 wks. Short Term Goals: Initiate HEP with evidence of compliance. Pt will improve functional IR AROM to at least L 2; initial inferior sacrum. Improve baseline pain with activity to < 5/10, initial: 8/10. Care Home Goals: I with HEP. Pt will be able to place items on high shelf with managed Sx; initial 8/10. Pt will be able to dress pullovers w/o compensation and managed Sx; initial: pain and modified. No longer TTP of anterior shoulder; initial 2+ (moderate). Treatment Plan: Modalities to reduce pain, spasms and effusion. Manual therapy to restore motion and function. Therapeutic exercise to improve strength and flexibility. Neuromuscular re-education for posture and balance. Therapeutic activities to return to functional activities of daily living. Electronically signed by: Santino Mccormack PT. Please sign and return to therapist. Thank you for your referral.
--- NOTE | 2021-12-08 10:13 | MHC.PT.DC ---
[facility] [place] Office [place] Office [place] Office [address] Maxine Jin [address] [phone] F: [phone] F: [phone] F: [phone] F: [phone] Physical Therapy Discharge Report Diagnosis: R shoulder synovitis/ tenosynovitis. Date of Surgery: Date of Evaluation: 10/20/21 Date of Discharge: 12/08/21 Treatments to Date: 3 Cancellations to Date: 2 No Shows to Date: 2 Discharge Status: Visit Non-compliance Discharge Summary: Pt has not attended therapy in > 40 days after logging 2 cancellations and 2 no-show appointments and is DC'd per [facility] attendance policy, thank you. Electronically signed by: Santino Mccormack PT. Please sign and return to therapist. Thank you for your referral.
== END 2021-12-08 10:13 | disposition home or self-care (01) ==
LOC: HO.PTCHIC 10:00
PROVIDERS: PCP Internal Medicine; Visit Provider Internal Medicine
DX: M65.811 Other synovitis and tenosynovitis, right shoulder (principal)
CPT/HCPCS: 97014; 97110; 97161

== ENCOUNTER 2022-10-17 10:03 | Outpatient (REF) | payer OTHER, SELFPAY ==
--- NOTE | ~2022-10-17 | XR_ITS ---
EXAMINATION: XR FOOT, RIGHT CLINICAL INFORMATION: Right foot pain COMPARISON: None TECHNIQUE: AP, lateral, and oblique views of the right foot. FINDINGS: The bones and soft tissues are unremarkable. There is an os aponeurosis plantaris present. No fracture. Alignment is anatomic. Joint spaces are maintained. XR/XR foot RT min 3V IMPRESSION: No acute finding in the right foot to account for the patient's pain.
== END 2022-10-17 10:04 | disposition home or self-care (01) ==
LOC: HO.HMGCX 10:03
PROVIDERS: PCP Internal Medicine; Visit Provider Internal Medicine
DX: M79.671 Pain in right foot (principal)
CPT/HCPCS: 73630

== ENCOUNTER 2022-12-25 09:22 | Outpatient (REF) | payer OTHER, SELFPAY ==
[2022-12-25 11:39] LABS: Eosinophils Absolute Auto 0.1 X10*3/uL (0.0-0.4); Eosinophils Percent Auto 2.5 % (0-4); Hematocrit 39.6 % (37.0-47.0); Hemoglobin 12.7 g/dl (12.0-16.0); Lymphocytes Absolute Auto 2.4 X10*3/uL (1.2-4.9); Lymphocytes Percent Auto 60.1 % (20-40); MANUAL DIFF FLAG SCAN; Mean Corpuscular HGB Conc 32.1 g/dl (31.0-35.0); Mean Corpuscular Hemoglobin 30.8 pg (27.0-33.0); Mean Corpuscular Volume 95.9 fL (80.0-98.0); Monocytes Absolute Auto 0.3 X10*3/uL (0.1-1.2); Monocytes Percent Auto 8.6 % (2-11); Neutrophils Absolute Auto 1.1 x10*3/uL (2.0-8.3); Neutrophils Percent Auto 27.8 % (45-73); Platelet Count 251 X10*3/uL (160-400); Red Blood Count 4.13 X10*6/uL (4.20-5.50); Red Cell Distribution Width 12.2 % (11.0-16.0); SCAN SMEAR FLAG 1
[2022-12-25 12:04] LABS: Alanine Aminotransferase 17 U/L (0-31); Albumin Level 4.3 g/dL (3.5-5.0); Alkaline Phosphatase 104 U/L (39-117); Anion Gap 9 (12-20); Aspartate Amino Transferase 18 U/L (5-31); Bilirubin Total 0.5 mg/dL (0.0-1.0); Blood Urea Nitrogen 5 mg/dL (9-16); Calcium 9.4 mg/dL (8.4-10.2); Carbon Dioxide 30 mmol/L (22-29); Chloride 105 mmol/L (96-108); Cholesterol 178 mg/dL; Estimated Glomerular Filt Rate > 60; Glucose Fasting 90 mg/dL (60-99); HDL Cholesterol 44 mg/dL; LDL Cholesterol Calculated 121 mg/dl; Potassium 4.3 mmol/L (3.3-5.1); Sodium 140 mmol/L (135-145); Total Protein 7.5 g/dL (6.5-8.0); Triglycerides 66 mg/dL; Vitamin D 25-OH Total 24.8 ng/mL (>30)
[2022-12-25 12:36] LABS: SLIDE REVIEW VERIFIED
== END 2022-12-25 09:23 | disposition home or self-care (01) ==
LOC: HO.HMGCLDS 09:22
PROVIDERS: PCP Internal Medicine; Visit Provider Internal Medicine
DX: Z00.01 Encounter for general adult medical examination with abnormal findings (principal); D12.6 Benign neoplasm of colon, unspecified; E55.9 Vitamin D deficiency, unspecified; G43.009 Migraine without aura, not intractable, without status migrainosus; Z86.2 Personal history of diseases of the blood and blood-forming organs and certain disorders involving the immune mechanism; Z80.0 Family history of malignant neoplasm of digestive organs
CPT/HCPCS: 36415; 80053; 80061; 82306; 85025

== ENCOUNTER 2024-01-15 13:35 | Outpatient (AMB) | payer OTHER, SELFPAY ==
--- NOTE | 2024-01-15 13:37 | A.OFFPC_ITS ---
Vital Signs 01/15/24 13:41 Height 5 ft 2 in Weight 174 lb BMI 31.8 BP 128/80 Blood Pressure Location Lt brachial Position Sitting Pulse 75 Pulse Source Pulse Oximeter Pulse Oximetry (%) 98 Oxygen Delivery Method Room Air Intake Visit Reasons: Annual PE~R/S from Dr. Gomes being out/ok Intake Note: Pt is here today for her PE: last mammogram 04/06/21 Allergies No Known Allergies Allergy (Verified 06/08/24 08:36) Medication List - Last Reconciled 01/15/24 by Cammy Mujica MD acetaminophen (Tylenol Extra Strength) 1,000 mg (2 x 500 mg) PO QID PRN bisacodyl (Dulcolax (bisacodyl)) 10 mg (2 x 5 mg) PO BEDTIME 30 days diclofenac sodium 1% 2 grams topical QID PRN levonorgestrel (Mirena) intrauterine Tobacco use date assessed: 01/15/24 Dental Screening Dental Screen Date: 01/15/24 Did you have a dental visit in the last 12 months?: Yes Did you have a dental problem in the last 6 months where you did not have access to dental care?: No Was dental information given to patient?: Patient has dentist HPI Annual PE~R/S from Dr. Gomes being out/ok HPI Details 48-year-old lady of migraine headache, g enital herpes, iron deficiency anemia and leukopenia, here today for physical exam. She is up-to-date with her screening colonoscopy done by Dr. Jean-Baptiste 03/09/2021 with removal of a tubular adenoma polyp, repeat due in 2025. She had a cervical cancer screening done by Dr. Dobbs 01/23/2021 with negative findings. Last mammogram on file was in 2020 done at [facility] also ordered by Dr. Dobbs. 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 Mother Colon cancer Medical history non-contributory Brother No problems noted. Sister No problems noted. Sister No problems noted. Son No problems noted. Daughter No problems noted. Maternal Grandmother HTN (hypertension) Maternal Aunt HTN (hypertension) Social History Household Members: Family Housing: House Are you a primary child care education coordinator to a significant other at home: No Do you presently have visiting nurse or other home services: No Alcohol intake: current Alcohol intake frequency: does not drink Patient Tobacco Use Status: Never used Tobacco e-Cigarette/Vaping Use: Never Used Second Hand Smoke Exposure: No service: No Current occupational status: employed Current occupation: RN Current occupational exposures/hazards: No Cognitive needs: No Hearing needs: No Vision needs: Yes Questionnaire PHQ-9 Over the last 2 weeks, how often have you been bothered by any of the following problems? 1. Little interest or pleasure in doing things: not at all 2. Feeling down, depressed, or hopeless: not at all 3. Trouble falling or staying asleep, or sleeping too much: not at all 4. Feeling tired or having little energy: several days 5. Poor appetite or overeating: not at all 6. Feeling bad about yourself - or that you are a failure or have let yourself or your family down: not at all 7. Trouble concentrating on things, such as reading the newspaper or watching television: not at all 8. Moving or speaking so slowly that other people could have noticed. Or the opposite - being so fidgety or restless that you have been moving around a lot more than usual: not at all 9. Thoughts that you would be better off or of hurting yourself in some way: not at all Total score: 1 Depression Screening Interpretation: Negative Depression Screening Done: Yes [id number] - PHQ-9 Billing: Yes Source: Developed by Drs. Jluis Padilla, Griffin Martino and colleagues, with an educational ailin from [employer]. Thrive Questionnaire Date Thrive assessed: 01/15/24 I am a: Patient What is your living situation today?: I have a steady place to live Within the past 12 months, did the food you bought not last and you didn't have the money to get more?: Never true Within the past 12 months, did you worry whether your food would run out before you got money to buy more?: Never true Do you have trouble paying for medicines?: No Do you have trouble getting transportation to medical appointments?: No Do you have trouble paying your heating and electricity bill?: No Do you have trouble taking care of your child, family member or friend?: No Do you have trouble with day-to-day activities such as bathing, preparing meals, shopping, managing finances, etc.?: No Are you currently unemployed and looking for a job?: No Are you interested in more education?: No THRIVE Score: 0 AUDIT C Alcohol Use Questionnaire (AUDIT-C) 1. How often do you have a drink containing alcohol?: Never Total Score: 0 DIAMOND-7 AMB Questionnaire DIAMOND-7 Date DIAMOND - 7 assessed: 01/15/24 Feeling nervous, anxious, or on edge: 1 = Several days Not being able to stop or control worryin = Not at all Worrying too much about different things: 0 = Not at all Trouble relaxin = Not at all Being so restless that it is hard to sit still: 0 = Not at all Becoming easily annoyed or irritable: 0 = Not at all Feeling afraid as if something awful might happen: 0 = Not at all Total DIAMOND-7 score (0-4 normal; 5-9 mild; 10-14 moderate; 15-21 severe): 1 Source: Developed by Drs. Jluis Padilla, Griffin Martino and colleagues, with an educational ailin from [employer]. DIAMOND-7 Assessment Billing DIAMOND-7 Assessment Tool: DIAMOND-7 Assessment 18431 Review of Systems Const Denies chills, Denies fatigue, Denies fever(s), Denies frequent falls, Denies lethargy and Denies malaise Eyes Denies change in vision (Sees [employer]) and Denies itchy eyes ENT Reports no additional complaints Card Reports no additional complaints Resp Reports no additional complaints GI Denies abdominal pain, Denies melena, Denies bloating, Denies hematochezia and R eports constipation Reports no additional complaints Musc Reports as per HPI Skin/Breast Denies rash Neuro Reports no additional complaints and Denies frequent falls Psych Denies abnormal sleep pattern, Denies anxiety and Denies depression Endo Denies fatigue Zach/Lymph Reports no additional complaints Aller/Immun Denies itchy eyes Physical exam (Primary Care) Vital Signs: Last Vital Signs Pulse 75 01/15/24 13:41 BP 128/80 01/15/24 13:41 Pulse Ox 98 01/15/24 13:41 Oxygen Delivery Method Room Air 01/15/24 13:41 BMI result Body Mass Index 31.8 Tobacco/Smoking Status: Tobacco use Status Tobacco use date assessed 01/15/24 01/15/24 13:47 Patient Tobacco Use Status Never used Tobacco 01/15/24 13:39 e-Cigarette/Vaping Use Never Used 01/15/24 13:39 PHQ-9: PHQ-9 Score PHQ-9: Total score 1 01/15/24 13:55 Depression Screening Interpretation: Negative Thrive Assessment: Date of Thrive Assessment Date Thrive assessed 01/15/24 01/15/24 13:55 Const General: comfortable and no acute distress Nutritional Appearance: obese Orientation/consciousness: patient oriented x3 HENMT Head: Yes normal to inspection and Yes normocephalic Ears: hearing grossly normal bilaterally, external ears normal, TM's normal bilaterally and EAC's normal General nose exam: Normal external nose present Face and sinus: Yes face symmetric Mouth: Normal oral and palatal mucosa present and moist mucous membranes Eyes General: appearance normal, both eyes and all related structures Periorbital: periorbital findings normal Eyelids: Yes eyelids normal Pupils: Equal, round and reactive pupils present EOM: EOMs intact bilaterally Neck Neck: Yes full ROM, Yes no lymphadenopathy and Yes supple Chest Chest palpation & inspection: normal inspection of the chest Breast/axilla palpation: normal palpation of the breasts Resp Effort & Inspection: normal respiratory effort and able to speak in complete sentences Auscultation: clear to auscultation bilaterally Cardio Rate: regular rate Rhythm: regular rhythm Heart sounds: S1 normal heart sound present and S2 normal heart sound present Bruits: no abdominal aortic bruits GI Inspection: Yes normal to inspection Palpation (GI): No Abdominal aortic bruit present, Soft to palpation, nontender, no guarding and no masses Auscultation: normal bowel sounds Other: Currently sees Dr. Dobbs for her routine Pap and pelvic exam, Back/Spine/Pelvis Thoracic/Lumbar Spine: No straight leg raise negative bilaterally, No pain with thoraco-lumbar ROM and paraspinal muscle tenderness bilaterally in the lower lumbar Skin General skin exam: no rashes or lesions noted Neuro General: patient oriented x3, gait normal, tone normal, Normal light touch and pain sensation and no focal motor deficits Cranial nerves: Yes Equal, round and reactive pupils present Extrem General: Yes normal to inspection, Yes full ROM, Yes no joint enlargement, Yes no pedal edema, Yes no calf tenderness and Yes normal gait Psych Appearance: grossly normal and well kempt Mental Status: mental status grossly normal Affect: normal affect Attitude: cooperative Thought process: Normal thought process present Thought content: Normal thought content present Coding Level of Care Code Est Pt Prev Care 40-64y(06291) Diagnoses Annual visit for general adult medical examination with abnormal findings Z00.01 Migraine headache without aura G43.009 Vitamin D deficiency E55.9 Constipation, unspecified constipation type K59.00 Constipation type: unspecified constipation type Additional Codes DIAMOND-7 Assessment Billing - DIAMOND-7 Assessment Tool: DIAMOND-7 Assessment [id number] ([id number])
[2024-01-15 13:41] VITALS: BP 128/80; PULSE 75; O2SAT 98; BMI 31.8
== END 2024-01-15 14:22 | disposition home or self-care (01) ==
PROVIDERS: PCP Internal Medicine; Visit Provider Internal Medicine
DX: Z00.00 Encounter for general adult medical examination without abnormal findings (principal); G43.009 Migraine without aura, not intractable, without status migrainosus; E55.9 Vitamin D deficiency, unspecified; K59.00 Constipation, unspecified
CPT/HCPCS: 99396

== ENCOUNTER 2024-01-15 14:24 | Outpatient (REF) | payer OTHER, SELFPAY ==
[2024-01-15 16:17] LABS: MANUAL DIFF FLAG NO
[2024-01-15 16:26] LABS: Basophils Absolute Auto 0.1 X10*3/uL (0.0-0.2); Basophils Percent Auto 1.3 % (0-2); Eosinophils Absolute Auto 0.1 X10*3/uL (0.0-0.4); Eosinophils Percent Auto 2.7 % (0-4); Hematocrit 38.7 % (37.0-47.0); Hemoglobin 12.1 g/dl (12.0-16.0); Imm Gran Abs Auto 0.01 X10*3/uL (0.00-0.03); Imm Gran Pct Auto 0.3 % (0.0-0.4); Lymphocytes Percent Auto 52.8 % (20-40); Mean Corpuscular HGB Conc 31.3 g/dl (31.0-35.0); Mean Corpuscular Hemoglobin 30.5 pg (27.0-33.0); Mean Corpuscular Volume 97.5 fL (80.0-98.0); Mean Platelet Volume 11.1 fL (9.4-12.3); Monocytes Absolute Auto 0.3 X10*3/uL (0.1-1.2); Monocytes Percent Auto 8.6 % (2-11); Neutrophils Absolute Auto 1.3 x10*3/uL (2.0-8.3); Neutrophils Percent Auto 34.3 % (45-73); Platelet Count 271 X10*3/uL (160-400); Red Blood Count 3.97 X10*6/uL (4.20-5.50); Red Cell Distribution Width 12.4 % (11.0-16.0); White Blood Count 3.7 X10*3/uL (4.8-10.8)
[2024-01-15 16:54] LABS: Alanine Aminotransferase 16 U/L (0-31); Aspartate Amino Transferase 20 U/L (5-31); Cholesterol 174 mg/dL (<200); Glucose Fasting 87 mg/dL (60-99); HDL Cholesterol 47 mg/dL (>40); LDL Cholesterol Calculated 115 mg/dL (<100); Triglycerides 61 mg/dL (<150)
[2024-01-15 17:01] LABS: TSH reflex Free T4 0.94 uIU/mL (0.32-4.0); Vitamin D 25-OH Total 39.8 ng/mL (>30)
== END 2024-01-15 14:25 | disposition home or self-care (01) ==
LOC: HO.HMGCLDS 14:24
PROVIDERS: PCP Internal Medicine; Visit Provider Internal Medicine
DX: Z00.01 Encounter for general adult medical examination with abnormal findings (principal); E55.9 Vitamin D deficiency, unspecified; Z80.0 Family history of malignant neoplasm of digestive organs; D72.819 Decreased white blood cell count, unspecified; K59.00 Constipation, unspecified
CPT/HCPCS: 36415; 80061; 82306; 82947; 84443; 84450; 84460; 85025

== ENCOUNTER 2024-06-01 09:17 | Outpatient (REF) | payer OTHER, SELFPAY ==
[2024-06-01 15:33] LABS: Influenza A PCR NEGATIVE (Negative); Influenza B PCR NEGATIVE (Negative); Resp Syncy Virus RNA Qual PCR NEGATIVE (Negative); SARS COV2 PCR INHOUSE NEGATIVE (Negative)
== END 2024-06-01 09:18 | disposition home or self-care (01) ==
LOC: HO.LNP 09:17
PROVIDERS: Registered Nurse; PCP Internal Medicine
DX: J06.9 Acute upper respiratory infection, unspecified (principal)
CPT/HCPCS: 0241U; 99212

== ENCOUNTER 2024-06-01 09:17 | Outpatient (AMB) | payer OTHER, SELFPAY ==
--- NOTE | 2024-06-01 10:21 | MHC.OFFWIV ---
Intake Vital Signs 06/01/24 10:22 Height 5 ft 2 in Weight 172 lb 2 oz BMI 31.5 BP 130/82 Blood Pressure Location Lt brachial Position Sitting Pulse 71 Pulse Source Pulse Oximeter Pulse Oximetry (%) 98 Oxygen Delivery Method Room Air Intake Visit Reasons: EP Cough [phone] Intake Note: Patient here for cough that has been present for about 1 week. Patient Tobacco Use Status: Never used Tobacco Allergies No Known Allergies Allergy (Verified 06/01/24 10:22) Do you need a note to return to daycare/school/sports/work: No HPI EP Cough [phone] HPI Details This note is constructed using voice recognition software. While every effort has been made to ensure accuracy, restoration ecologist errors may have been included. The patient is a 48 year old female who presents to the clinic today with complaints of cough for the past week. She also notes generalized fatigue, as well as some mild body aches. No fever, chills, shortness of breath. Her son recently was sick with upper respiratory infection. 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 Mother Colon cancer Medical history non-contributory Brother No problems noted. Sister No problems noted. Sister No problems noted. Son No problems noted. Daughter No problems noted. Maternal Grandmother HTN (hypertension) Maternal Aunt HTN (hypertension) Social History Household Members: Family Housing: House Are you a primary direct support professional caregiver to a significant other at home: No Do you presently have visiting nurse or other home services: No Alcohol intake: current Alcohol intake frequency: does not drink Patient Tobacco Use Status: Never used Tobacco e-Cigarette/Vaping Use: Never Used Second Hand Smoke Exposure: No service: No Current occupational status: employed Current occupation: RN Current occupational exposures/hazards: No Cognitive needs: No Hearing needs: No Vision needs: Yes Review of Systems Const All systems reviewed & are unremarkable except as noted in HPI and below Physical Exam Vital Signs: Last Vital Signs Pulse 71 06/01/24 10:22 BP 130/82 06/01/24 10:22 Pulse Ox 98 06/01/24 10:22 Oxygen Delivery Method Room Air 06/01/24 10:22 BMI result Body Mass Index 31.5 Const General: cooperative, healthy appearing, comfortable and no acute distress Orientation/consciousness: patient oriented x3 Limitations: no limitations HEENT Head: Yes normal to inspection Ears: hearing grossly normal bilaterally, external ears normal and TM's normal bilaterally General nose exam: Normal external nose present, Normal nares present and No nasal discharge present Face and sinus: Yes normal facial exam and Yes sinuses nontender Mouth: Normal oral and palatal mucosa present and moist mucous membranes Throat: Yes tonsils normal, Yes uvula midline and Yes posterior oropharynx abnormal (Erythema) Eyes General: appearance normal, both eyes and all related structures Neck Neck: Yes normal visual inspection Resp Effort & Inspection: normal respiratory effort, able to speak in complete sentences, Actively coughing, no respiratory distress, not tachypneic, no tripod positioning and no use of accessory muscles Auscultation: clear to auscultation bilaterally Cardio Jugular venous distension: no JVD Rate: regular rate Rhythm: regular rhythm Heart sounds: S1 normal heart sound present, S2 normal heart sound present, no click, no gallops, no murmurs and no rubs Skin General skin exam: no rashes or lesions noted, elasticity normal and turgor normal Neuro General: patient oriented x3 Extrem General: Yes normal to inspection and Yes no clubbing, cyanosis or edema Assessment & Plan Assessment & Plan (1) URI (upper respiratory infection): Code(s): J06.9 - Acute upper respiratory infection, unspecified Qualifiers: URI type: unspecified URI Qualified Code(s): J06.9 - Acute upper respiratory infection, unspecified Plan: Viral swab obtained to rule out Covid based on symptoms. Advised mask wearing while symptomatic and quarantine per current CDC guidelines. Reviewed at home support methods including hydration, humidification, vix vapor rub, sinus rinse. Advised follow up with worsening symptoms such as dyspnea at rest, which would require emergent evaluation. Plan See above for full details and plan. Orders: Orders SARS-CoV2/FLU/RSV Today J06.9 - Acute upper respiratory infection, unspecified Coding Level of Care Code Est Pt Level 3 (59520) Diagnoses Upper respiratory tract infection, unspecified type J06.9 URI type: unspecified URI
[2024-06-01 10:22] VITALS: BP 130/82; PULSE 71; O2SAT 98; BMI 31.5
== END 2024-06-01 11:21 | disposition home or self-care (01) ==
PROVIDERS: PCP Internal Medicine; Visit Provider Registered Nurse
DX: J06.9 Acute upper respiratory infection, unspecified (principal)

== ENCOUNTER 2024-07-21 08:06 | Outpatient (REF) | payer OTHER, SELFPAY ==
--- NOTE | ~2024-07-21 | XR_ITS ---
EXAMINATION: XR FINGER, RIGHT CLINICAL INFORMATION: S67.10XA - Crushing injury of unspecified finger(s), initial encounter COMPARISON: None available. TECHNIQUE: Three views of the right index finger. FINDINGS: The bones and soft tissues appear unremarkable. No fracture identified. Alignment is anatomic. Joint spaces are maintained. XR/XR finger RT min 2V IMPRESSION: Normal finger radiographs. Electronically signed by: Herber Velasco MD 07/21/2024 10:48 AM [facility]
== END 2024-07-21 08:07 | disposition home or self-care (01) ==
LOC: HO.HMGCX 08:06
PROVIDERS: PCP Internal Medicine; Visit Provider Physician Assistant
DX: S67.190A Crushing injury of right index finger, initial encounter (principal); S60.121A Contusion of right index finger with damage to nail, initial encounter; W23.0XXA Caught, crushed, jammed, or pinched between moving objects, initial encounter; Y93.9 Activity, unspecified; Y92.9 Unspecified place or not applicable; Y99.9 Unspecified external cause status
CPT/HCPCS: 11740; 73140; 99212

== ENCOUNTER 2024-07-21 08:06 | Outpatient (AMB) | payer OTHER, SELFPAY ==
--- NOTE | 2024-07-21 08:15 | AM.OFFWIN_ITS ---
Intake Vital Signs 07/21/24 08:16 Height 5 ft 2 in Weight 174 lb 6 oz BMI 31.9 BP 126/80 Blood Pressure Location Lt brachial Position Sitting Pulse 73 Pulse Source Pulse Oximeter Pulse Oximetry (%) 99 Oxygen Delivery Method Room Air Intake Visit Reasons: EP car door slammed on finger Intake Note: Patient here because she slammed the pointer finger on right hand in car door. Patient Tobacco Use Status: Never used Tobacco Allergies No Known Allergies Allergy (Verified 07/21/24 08:16) Do you need a note to return to daycare/school/sports/work: No HPI HPI Comments History of Present Illness Details History of Present Illness The patient is a 48-year-old female presenting with a subungual hematoma and a suspected finger fracture. The patient reports that her finger was injured when her book got stuck in a car door, which occurred the previous day. The injury has resulted in notable pain and throbbing sensations in the finger, and the patient has observed some blood accumulation beneath the nail. The patient was able to move the affected finger. For pain management, the patient has been taking Motrin and Tylenol. Additionally, she applied lidocaine due to an existing chronic back problem, which provided some relief. The throbbing pain has persisted, prompting the current urgent care visit. The patient describes ongoing soreness and pressure under the nail. There has been no prior intervention for this finger injury before today. Physical Exam General: Cooperative, healthy appearing, comfortable, no acute distress and well developed Orientation: Patient oriented x3 Limitations: No limitations Head: Normal to inspection Ears: Hearing grossly normal bilaterally Nose: Normal External nose present Face and sinus: ormal facial exam Eyes: Appearance normal, both eyes and all related structures Neck: Normal visual inspection and Yes full ROM Respiratory: Normal respiratory effort and able to speak in complete sentences. 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 Mother Colon cancer Medical history non-contributory Brother No problems noted. Sister No problems noted. Sister No problems noted. Son No problems noted. Daughter No problems noted. Maternal Grandmother HTN (hypertension) Maternal Aunt HTN (hypertension) Social History Household Members: Family Housing: House Are you a primary healthcare science specialist to a significant other at home: No Do you presently have visiting nurse or other home services: No Alcohol intake: current Alcohol intake frequency: does not drink Patient Tobacco Use Status: Never used Tobacco e-Cigarette/Vaping Use: Never Used Second Hand Smoke Exposure: No service: No Current occupational status: employed Current occupation: RN Current occupational exposures/hazards: No Cognitive needs: No Hearing needs: No Vision needs: Yes Review of Systems Const All systems reviewed & are unremarkable except as noted in HPI and below Physical Exam Vital Signs: Last Vital Signs Pulse 73 07/21/24 08:16 BP 126/80 07/21/24 08:16 Pulse Ox 99 07/21/24 08:16 Oxygen Delivery Method Room Air 07/21/24 08:16 BMI result Body Mass Index 31.9 Assessment & Plan Assessment & Plan (1) Injury, crush, finger: Code(s): S67.10XA - Crushing injury of unspecified finger(s), initial encounter Qualifiers: Encounter type: initial encounter Qualified Code(s): S67.10XA - Crushing injury of unspecified finger(s), initial encounter Plan: - Subungual Hematoma: A trephination procedure was performed to alleviate the subungual hematoma by creating a small hole to release the accumulated blood, reducing pressure and providing pain relief. The area was sterilized and a sterile dressing was applied. - Suspected Finger Fracture: An x-ray was recommended to ascertain the presence of a fracture of the distal phalanx. My interpretation of the x-ray was that there was no fracture so we just splinted it so she may rest it for the next day or 2. Recommended removing it in 24-48 hours and ensuring she maintains her range of motion. If pain continues, she should follow up with her PCP. If necessary, referral to an orthopedic hand specialist might be considered. Patient was informed and verbally consented to the use of an ambient scribe for clinic note documentation during this visit. (2) Hematoma, subungual, finger, right: Code(s): S60.10XA - Contusion of unspecified finger with damage to nail, initial encounter Qualifiers: Encounter type: initial encounter Qualified Code(s): S60.10XA - Contusion of unspecified finger with damage to nail, initial encounter Plan: as above Coding Level of Care Code Est Pt Level 4 (13106) Diagnoses Crushing injury of finger, initial encounter S67.10XA Encounter type: initial encounter Subungual hematoma of finger of right hand, initial encounter S60.10XA Encounter type: initial encounter
[2024-07-21 08:16] VITALS: BP 126/80; PULSE 73; O2SAT 99; BMI 31.9
== END 2024-07-21 09:26 | disposition home or self-care (01) ==
PROVIDERS: PCP Internal Medicine; Visit Provider Physician Assistant
DX: S67.10XA Crushing injury of unspecified finger(s), initial encounter (principal); S60.10XA Contusion of unspecified finger with damage to nail, initial encounter

== ENCOUNTER 2024-07-23 12:34 | Outpatient (AMB) | payer OTHER, SELFPAY ==
[2024-07-23 12:46] VITALS: BP 138/80; PULSE 65; O2SAT 96; BMI 31.6
--- NOTE | 2024-07-23 12:46 | A.OFFPC_ITS ---
Vital Signs 07/23/24 12:46 Height 5 ft 2 in Weight 173 lb BMI 31.6 BP 138/80 Blood Pressure Location Lt brachial Position Sitting Pulse 65 Pulse Source Pulse Oximeter Pulse Oximetry (%) 96 Oxygen Delivery Method Room Air Intake Visit Reasons: rt shoulder pain Intake Note: Pt is here today c/o Rt shoulder pain, no injury noted on and off 6mo. Allergies No Known Allergies Allergy (Verified 07/23/24 13:12) Medication List - Last Reconciled 07/23/24 by Cammy Mujica MD acetaminophen (Tylenol Extra Strength) 1,000 mg (2 x 500 mg) PO QID PRN bisacodyl (Dulcolax (bisacodyl)) 10 mg (2 x 5 mg) PO BEDTIME 30 days diclofenac sodium 1% 2 grams topical QID PRN levonorgestrel (Mirena) intrauterine Tobacco use date assessed: 07/23/24 Dental Screening Dental Screen Date: 07/23/24 Did you have a dental visit in the last 12 months?: Yes Did you have a dental problem in the last 6 months where you did not have access to dental care?: No Was dental information given to patient?: Patient has dentist HPI rt shoulder pain HPI Details - The patient is a 48-year-old female pr esenting with chronic right shoulder pain. Has been experiencing this on and off for the last several months and has been progressively getting worse. No history of trauma - unable to lift right arm more than 150 degrees without any pain elicited, - Previous physical therapy and diclofen ac gel use were ineffective. - Ibuprofen provides transient relief. - Pain localized to the posterior aspect of the shoulder. - Limited range of motion noted, pain in duced upon doing overhead motion with right arm or right shoulder extension - No imaging or significant evaluations in the last two years; previous x-ray details uncertain. - No associated numbness or tingling in the arm, no accompanying weakness reported. 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 Mother Colon cancer Medical history non-contributory Brother No problems noted. Sister No problems noted. Sister No problems noted. Son No problems noted. Daughter No problems noted. Maternal Grandmother HTN (hypertension) Maternal Aunt HTN (hypertension) Social History Household Members: Family Housing: House Are you a primary dog day care attendant to a significant other at home: No Do you presently have visiting nurse or other home services: No Alcohol intake: current Alcohol intake frequency: does not drink Patient Tobacco Use Status: Never used Tobacco e-Cigarette/Vaping Use: Never Used Second Hand Smoke Exposure: No service: No Current occupational status: employed Current occupation: RN Current occupational exposures/hazards: No Cognitive needs: No Hearing needs: No Vision needs: Yes Questionnaire PHQ-9 Over the last 2 weeks, how often have you been bothered by any of the following problems? 1. Little interest or pleasure in doing things: not at all 2. Feeling down, depressed, or hopeless: not at all 3. Trouble falling or staying asleep, or sleeping too much: not at all 4. Feeling tired or having little energy: not at all 5. Poor appetite or overeating: not at all 6. Feeling bad about yourself - or that you are a failure or have let yourself or your family down: not at all 7. Trouble concentrating on things, such as reading the newspaper or watching television: not at all 8. Moving or speaking so slowly that other people could have noticed. Or the opposite - being so fidgety or restless that you have been moving around a lot more than usual: not at all 9. Thoughts that you would be better off or of hurting yourself in some way: not at all Total score: 0 Source: Developed by Drs. Jluis L. Randy, Griffin Martino and colleagues, with an educational ailin from [employer]. Thrive Questionnaire Date Thrive assessed: 01/15/24 I am a: Patient What is your living situation today?: I have a steady place to live Within the past 12 months, did the food you bought not last and you didn't have the money to get more?: I choose not to answer this question Within the past 12 months, did you worry whether your food would run out before you got money to buy more?: Never true Do you have trouble paying for medicines?: No Do you have trouble getting transportation to medical appointments?: No Do you have trouble paying your heating and electricity bill?: No Do you have trouble taking care of your child, family member or friend?: No Do you have trouble with day-to-day activities such as bathing, preparing meals, shopping, managing finances, etc.?: No Are you currently unemployed and looking for a job?: I choose not to answer this question Are you interested in more education?: I choose not to answer this question Please select the resources that you would like help with: None Currently or been in a relationship where the following occur: No concerns reported THRIVE Score: 0 AUDIT C Alcohol Use Questionnaire (AUDIT-C) 1. How often do you have a drink containing alcohol?: Never Total Score: 0 DIAMOND-7 AMB Questionnaire DIAMOND-7 Date DIAMOND - 7 assessed: 01/15/24 Feeling nervous, anxious, or on edge: 0 = Not at all Not being able to stop or control worryin = Not at all Worrying too much about different things: 0 = Not at all Trouble relaxin = Not at all Being so restless that it is hard to sit still: 0 = Not at all Becoming easily annoyed or irritable: 0 = Not at all Feeling afraid as if something awful might happen: 0 = Not at all Total DIAMOND-7 score (0-4 normal; 5-9 mild; 10-14 moderate; 15-21 severe): 0 Source: Developed by Drs. Jluis Padilla, Griffin Martino and colleagues, with an educational ailin from [employer]. Review of Systems Const All systems reviewed & are unremarkable except as noted in HPI and below Physical exam (Primary Care) Vital Signs: Last Vital Signs Pulse 65 07/23/24 12:46 BP 138/80 07/23/24 12:46 Pulse Ox 96 07/23/24 12:46 Oxygen Delivery Method Room Air 07/23/24 12:46 BMI result Body Mass Index 31.6 Tobacco/Smoking Status: Tobacco use Status Tobacco use date assessed 07/23/24 07/23/24 12:49 Patient Tobacco Use Status Never used Tobacco 07/23/24 12:49 e-Cigarette/Vaping Use Never Used 07/23/24 12:49 PHQ-9: PHQ-9 Score PHQ-9: Total score 0 07/23/24 13:13 Thrive Assessment: Date of Thrive Assessment Date Thrive assessed 01/15/24 07/23/24 12:49 Currently or been in a relationship where the following occur: No concerns reported Const General: comfortable and no acute distress Nutritional Appearance: obese Orientation/consciousness: patient oriented x3 HENMT Head: Yes normal to inspection and Yes normocephalic Ears: external ears normal, TM's normal bilaterally and EAC's normal General nose exam: Normal external nose present Face and sinus: Yes face symmetric Mouth: Normal oral and palatal mucosa present and moist mucous membranes Neck Neck: Yes full ROM, Yes no lymphadenopathy and Yes supple Resp Effort & Inspection: normal respiratory effort and able to speak in complete sentences Auscultation: clear to auscultation bilaterally Cardio Rate: regular rate Rhythm: regular rhythm Heart sounds: S1 normal heart sound present and S2 normal heart sound present Skin General skin exam: no rashes or lesions noted Neuro General: patient oriented x3, gait normal, tone normal, Normal light touch and pain sensation and no focal motor deficits Extrem Other: Pain and listed on doing overhead motion with right arm more than 150 degrees, and on right shoulder extension General: Yes normal to inspection, Yes no joint enlargement, Yes no pedal edema, Yes no calf tenderness and Yes normal gait Coding Level of Care Code Est Pt Level 3 (87390) Diagnoses Chronic pain in right shoulder M25.511; G89.29 Assessment & Plan Assessment & Plan (1) Chronic pain in right shoulder: Code(s): M25.511 - Pain in right shoulder; G89.29 - Other chronic pain Category: Medical Plan: Referred for evaluation by an reservations specialist, as no improvement with physical therapy or conservative measures, and they may suggest an MRI for a clearer understanding of the internal state of the shoulder. Continue taking ibuprofen for symptomatic relief, take it always with a meal . I advised her that if she doesn't hear from orthopedics within ten days, she should contact us. The patient was encouraged to secure patient portal access for direct communication and follow-ups. Orders: Referrals Orthopedics Referral G89.29 - Other chronic pain, M25.511 - Pain in right shoulder
== END 2024-07-23 14:30 | disposition home or self-care (01) ==
PROVIDERS: PCP Internal Medicine; Visit Provider Internal Medicine
DX: M25.511 Pain in right shoulder (principal); G89.29 Other chronic pain

== ENCOUNTER → 2024-07-23 12:34 | Outpatient (BNVA) | payer OTHER, SELFPAY | PROVIDERS: PCP Internal Medicine; Visit Provider Internal Medicine | DX: M25.511 Pain in right shoulder (principal); G89.29 Other chronic pain | CPT/HCPCS: 96127; 99212 ==

== ENCOUNTER 2024-09-16 07:20 | Outpatient (REF) | payer OTHER, SELFPAY ==
--- NOTE | ~2024-09-16 | XR_ITS ---
EXAMINATION: XR SHOULDER, RIGHT CLINICAL INFORMATION: M25.511 - Pain in right shoulder COMPARISON: None available. TECHNIQUE: 3 views of the right shoulder. FINDINGS: The bones and soft tissues are normal. No fracture. Glenohumeral and acromioclavicular alignment is anatomic with normal joint space. No abnormal soft tissue calcifications. XR/XR shoulder RT min 2V IMPRESSION: Normal right shoulder Electronically signed by: Larry Sparrow MD 09/16/2024 10:43 AM [facility]
== END 2024-09-16 07:21 | disposition home or self-care (01) ==
LOC: HO.HOSX 07:20
PROVIDERS: Visit Provider Physician Assistant
DX: M25.511 Pain in right shoulder (principal)
CPT/HCPCS: 73030; 99202

== ENCOUNTER 2024-09-16 08:24 | Outpatient (AMB) | payer OTHER, SELFPAY ==
--- NOTE | 2024-09-16 08:32 | MHC.OFFVIS ---
Vital Signs 09/16/24 08:38 Height 5 ft 2 in Weight 165 lb 5.547 oz BMI 30.2 Intake Visit Reasons: EXERCISE SPECIALIST- RT shoulder pain Intake Note: Oanh is a 48 year old right hand dominant female who presents today for a new patient evaluation of right shoulder pain. No hx of injury. Patient was seen by her PCP who referred to orthopedics. Patient reports that her pain has been ongoing for the last 2 year and that has been progressively getting worse. She states that her pain is mainly posterior in her shoulder and it radiates to her neck. Patient mentions that she has done PT about 2 years ago which didn't help. She has tried and failed Tylenol, NSAIDs, topical cream and lidocaine patches. Allergies No Known Allergies Allergy (Verified 09/16/24 08:36) Medication List - Last Reconciled 09/16/24 by Nguyen Cooley PA-C acetaminophen (Tylenol Extra Strength) 1,000 mg (2 x 500 mg) PO QID PRN bisacodyl (Dulcolax (bisacodyl)) 10 mg (2 x 5 mg) PO BEDTIME 30 days diclofenac sodium 1% 2 grams topical QID PRN levonorgestrel (Mirena) intrauterine HPI HPI EXERCISE SPECIALIST- RT shoulder pain: Details: 48 yo female presents to the office today for right shoulder pain. She states she has pain in back of the shoulder into the trap and neck. She has difficulty and pain with activites such as driving and cleaning. She has pain that goes down into the elbow. She denies n/t. She had physical therapy many years ago for her shoulder with minimal relief. No other treatment to date. 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 Mother Colon cancer Medical history non-contributory Brother No problems noted. Sister No problems noted. Sister No problems noted. Son No problems noted. Daughter No problems noted. Maternal Grandmother HTN (hypertension) Maternal Aunt HTN (hypertension) Social History (Updated 09/16/24 @ 08:38 by Chiquita Pham) Household Members: Family Housing: House Are you a primary residential care facility manager to a significant other at home: No Do you presently have visiting nurse or other home services: No Alcohol intake: current Alcohol intake frequency: does not drink Patient Tobacco Use Status: Never used Tobacco e-Cigarette/Vaping Use: Never Used Second Hand Smoke Exposure: No service: No Current occupational status: employed Current occupation: RN/ right hand dominant Current occupational exposures/hazards: No Cognitive needs: No Hearing needs: No Vision needs: Yes Review of Systems Const All systems reviewed & are unremarkable except as noted in HPI and below Physical Exam Vital Signs: BMI result Body Mass Index 30.2 Const General: cooperative and no acute distress Orientation/consciousness: patient oriented x3 Resp Effort & Inspection: normal respiratory effort and able to speak in complete sentences Cardio Peripheral pulses: Peripheral pulses 2+ throughout Neuro General: patient oriented x3 Extrem Other: Right shoulder normal to inspection she has full range of motion with forward flexion and external rotation. She has limited internal rotation to back pocket. She has tenderness along the trapezium into the cervical spine. She has a positive Aponte. 5/5 rotator cuff strength when compared to contralateral side. Neurovascularly intact. Results Reviewed Results Reviewed: X-rays of the right shoulder obtained in the office today do show mild AC joint arthritis with type 2 acromion. Assessment & Plan Assessment & Plan (1) Impingement of right shoulder: Code(s): M25.811 - Other specified joint disorders, right shoulder Category: Medical (2) Arthritis of right acromioclavicular joint: Code(s): M19.011 - Primary osteoarthritis, right shoulder Category: Medical Plan We discussed options today which include physical therapy and cortisone injections. We will hold off on an injection today. I did put an order in for physical therapy to work on range of motion, rotator cuff and periscapular stabilization. I also gave her a prescription for ibuprofen 800 mg to take 3 times a day for 2 weeks to help with occasional flare-ups. If symptoms persist or worsen over the next several weeks she will make an appointment to discuss cortisone injection otherwise follow up as needed. Orders: Orders XR shoulder RT min 2V Today M25.511 - Pain in right shoulder PT Evaluation and Treatment Today M25.811 - Other specified joint disorders, right shoulder Medications: New ibuprofen 800 mg PO Q8H PRN 90 tabs 3RF pain 30 days S52.209D - Unspecified fracture of shaft of unspecified ulna, subsequent encounter for closed fracture with routine healing Coding Level of Care Code New Pt Level 3 (54470) Complex EM visit Add On G2211 Diagnoses Impingement of right shoulder M25.811 Arthritis of right acromioclavicular joint M19.011
[2024-09-16 08:38] VITALS: BMI 30.2
== END 2024-09-16 08:52 | disposition home or self-care (01) ==
PROVIDERS: PCP Internal Medicine; Visit Provider Physician Assistant
DX: M25.811 Other specified joint disorders, right shoulder (principal); M19.011 Primary osteoarthritis, right shoulder
CPT/HCPCS: 99203

== ENCOUNTER → 2024-09-16 08:26 | Outpatient (BNV) | payer OTHER, SELFPAY | PROVIDERS: Visit Provider Radiology Diagnostic Radiology | DX: M25.511 Pain in right shoulder (principal) | CPT/HCPCS: 73030 ==

== ENCOUNTER 2024-12-01 06:00 | Outpatient (RCR) | payer OTHER, SELFPAY ==
--- NOTE | 2024-10-09 14:54 | MHC.PT.EP ---
[facility] [place] Office [place] Office [place] Office [address] [phone] F: [phone] F: [phone] F: [phone] F: [phone] Physical Therapy Plan of Care Date of Evaluation: 10/09/24 Date of Surgery: none Diagnosis: impingement of the right shoulder Assessment: Patient is a 48 year old R handed female who presents with s/s consistent with impingement of R shoulder, R shoulder pain. She works with daily job demands including [employer] employee. Patient past medical history includes IBS and obesity. Current impairments include pain, posture, ROM, strength, activity tolerance and functional mobility. Functional limitations include decreased ability to dress, sleep, lift, work, reach, and push. Patient is motivated with good rehab potential. Skilled PT will address impairments and functional limitations in order to achieve goals. Frequency and Duration: The patient will be seen 2x/week for 5 weeks Short Term Goals: I with HEP - 2 weeks AROM flex/scaption/abd to 130 - 3 weeks Able to dress pain free - 3 weeks Salon Manager Goals: Strength 4+/5 grossly - 5 weeks Able to sleep and work pain free - 5 weeks SPADI 30/130 or better - 5 weeks . Full AROM pain free - 5 weeks Treatment Plan: Modalities to reduce pain, spasms and effusion. Manual therapy to restore motion and function. Therapeutic exercise to improve strength and flexibility. Neuromuscular re-education for posture and balance. Therapeutic activities to return to functional activities of daily living. Electronically signed by: Terry Payne, PT Please sign and return to therapist. Thank you for your referral.
--- NOTE | 2025-03-02 09:33 | MHC.PT.DC ---
[facility] [place] Office [place] Office [place] Office [address] Maxine Jin [address] [phone] F: [phone] F: [phone] F: [phone] F: [phone] Physical Therapy Discharge Report Diagnosis: impingement of the right shoulder Date of Surgery: none Date of Evaluation: 10/09/24 Date of Discharge: 12/02/24 Treatments to Date: 8 Cancellations to Date: No Shows to Date: Discharge Status: Improved Function Independent with HEP Discharge Summary: 12/01/24: I with HEP. AROM flex 144, scap 138, abd 135. Able to dress pain free. Strength 4+/5 except ER 4/5. SPADI 52/130. Able to sleep and work pain free. Compliant and motivated throughout. Progressed towards or met towards all goals. She will continue with HEP and d/c from PT at this time. 11/27/24: pt has been feeling better overall. reduced tissue tension and improved ROM. flexion to 135 AROM. 11/19/24: pt progressed with strength. no adverse reactions. continue to progress as tolerated with skilled PT for 2 more visits then d/c to HEP. reduced tissue tension at end of treatment. 11/09/24: some discomfort with ER strength. issued updated HEP today no adverse reactions. continue to progress as tolerated. 11/06/24: pt with less s/s overall. able to progress strength intervention without adverse reactions. 10/30/24: pt progressing well with skilled PT. no adverse reactions. inc ant shoulder tissue tension relieved with STM. updated HEP. 10/16/24: pt progressed with skilled PT. painful with flexion/scaption overhead head. continue to progress as tolerated. Patient is a 48 year old R handed female who presents with s/s consistent with impingement of R shoulder, R shoulder pain. She works with daily job demands including [employer] employee. Patient past medical history includes IBS and obesity. Current impairments include pain, posture, ROM, strength, activity tolerance and functional mobility. Functional limitations include decreased ability to dress, sleep, lift, work, reach, and push. Patient is motivated with good rehab potential. Skilled PT will address impairments and functional limitations in order to achieve goals. Electronically signed by: Terry Payne PT Please sign and return to therapist. Thank you for your referral.
== END 2025-03-02 09:34 | disposition home or self-care (01) ==
LOC: HO.PTCHIC 06:00
PROVIDERS: PCP Internal Medicine; Visit Provider Physician Assistant
DX: M25.811 Other specified joint disorders, right shoulder (principal)
CPT/HCPCS: 97110; 97140; 97162

== ENCOUNTER 2025-01-25 20:59 | Emergency (ER) | payer OTHER, SELFPAY ==
--- NOTE | ~2025-01-25 | XR_ITS ---
CLINICAL HISTORY: pain, left scap.region T spine, compression fx? 4 view, chest and left ribs Comparison: None Findings: Bones intact. No dislocations. The visualized lungs are normal. IMPRESSION: No acute rib fractures. This document has been electronically signed by: Tommy Gutierrez MD on 01/25/2025 23:55:39
[2025-01-25 21:08] VITALS: BP 149/78; PULSE 75; RESP 20; TEMP 36.7; O2SAT 97; BMI 31.9
[2025-01-26] MEDS: Ketorolac Tromethamine 15 MG/ML VIAL IM (00:40)
[2025-01-26] MEDS: methocarbamoL 750 MG TABLET PO (00:40)
--- NOTE | 2025-01-26 01:48 | ED_ITS ---
HPI - General Adult General Chief complaint: Back Pain/Injury Stated complaint: back pain Time Seen by Provider: 01/25/25 22:02 Source: patient Limitations: no limitations History of Present Illness ED Provider: Dorina Rascon PA-C HPI narrative: 49-year-old female presents with left upper back pain x1 day. Patient states she is having focal pain in relation to the left scapula, when she performs range of motion of her right upper extremity. Patient states she recently completed physical therapy for shoulder injury/arthritis. Patient denies other overuse injury, neck pain, pain radiating to the arm, paresthesia or weakness of left upper extremity. Related Data Home Medications ?Medication ?Instructions ?Recorded ?Confirmed levonorgestrel 21 mcg/24 hr (up to intrauterine 10/17/22 09/16/24 8 years) 52 mg intrauterine device (Mirena) Previous Rx's ?Medication ?Instructions ?Recorded acetaminophen 500 mg tablet 1,000 mg (2 x 500 mg) PO QID PRN 11/30/20 (Tylenol Extra Strength) fever or pain #14 tabs bisacodyl 5 mg tablet,delayed 10 mg (2 x 5 mg) PO BEDTIME 30 03/23/21 release (Dulcolax (bisacodyl)) days #60 tabs diclofenac sodium 1 % topical gel 2 g topical QID PRN joint pain 10/17/22 #100 grams ibuprofen 800 mg tablet 800 mg PO Q8H PRN pain 30 days #90 09/16/24 tabs ketorolac 10 mg tablet 10 mg PO Q6H PRN pain #20 tabs 01/26/25 methocarbamol 750 mg tablet 750 mg PO Q8H PRN pain #10 tabs 01/26/25 Allergies Allergy/AdvReac Type Severity Reaction Status Date / Time No Known Allergies Allergy Verified 01/25/25 21:13 Review of Systems Review of Systems: Yes all other systems are reviewed and are negative Constitutional: Constitutional: Denies fatigue and Denies fever(s) ENT: Denies neck pain Cardiovascular: Cardiovascular: Denies chest pain and Denies dyspnea Respiratory: Respiratory: Denies cough and Denies dyspnea Musculoskeletal: Musculoskeletal: Reports back pain, Denies arthralgias, Denies muscle weakness, Denies neck pain, Denies numbness and Denies tingling Neurologic: Denies numbness and Denies tingling Endocrine: Endocrine: Denies fatigue [facility] Past Medical History Attestation statement: The following information was validated with the patient. 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 Mother Colon cancer Medical history non-contributory Brother No problems noted. Sister No problems noted. Sister No problems noted. Son No problems noted. Daughter No problems noted. Maternal Grandmother HTN (hypertension) Maternal Aunt HTN (hypertension) Social History Social History (Updated 09/16/24 @ 08:38 by Chiquita Pham) Household Members: Family Housing: House Are you a primary resident care aide to a significant other at home: No Do you presently have visiting nurse or other home services: No Alcohol intake: current Alcohol intake frequency: does not drink Patient Tobacco Use Status: Never used Tobacco e-Cigarette/Vaping Use: Never Used Second Hand Smoke Exposure: No service: No Current occupational status: employed Current occupation: RN/ right hand dominant Current occupational exposures/hazards: No Cognitive needs: No Hearing needs: No Vision needs: Yes Physical Exam ED Vital Signs: Vital Signs - 24 hr 01/25/25 21:08 01/26/25 02:28 Temperature 98.1 F 98.1 F Pulse Rate 75 75 Respiratory Rate 20 20 Blood Pressure 149/78 H 149/78 H Pulse Oximetry 97 97 Oxygen Delivery Method Room Air Room Air BMI result Body Mass Index 31.9 Const Other: Alert well-appearing Orientation/consciousness: patient oriented x3 Resp Effort & Inspection: normal respiratory effort Cardio Other: Normal peripheral perfusion Back/Spine/Pelvis Other: Palpable pain over left paraspinous distribution in relation to the left scapula, no palpable deformity noted, pain elicited with range of motion of right upper extremity Skin Other: Warm dry no rash Neuro General: patient oriented x3, gait normal, no focal motor deficits and CN's II- XI intact bilaterally Psych Other: Cooperative Medications Administered Discontinued Medications Generic Name Dose Route Start Last Admin Trade Name Constantine PRN Reason Stop Dose Admin Ketorolac Tromethamine 15 mg 01/25/25 23:15 01/26/25 00:40 Ketorolac Tromethamine 15 Mg/Ml Vial IM 01/25/25 23:16 15 mg ONCE ONE Administration Methocarbamol 750 mg 01/25/25 23:15 01/26/25 00:40 Methocarbamol 750 Mg Tablet PO 01/25/25 23:16 750 mg ONCE ONE Administration Medical Decision Making Medical Decision Making MDM Narrative: 49-year-old female presents with left upper back pain x1 day. Patient states she is having focal pain in relation to the left scapula, when she performs range of motion of her right upper extremity. Patient states she recently completed physical therapy for shoulder injury/arthritis. Patient denies other overuse injury, neck pain, pain radiating to the arm, paresthesia or weakness of left upper extremity. 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 Furthermore she just completed physical therapy for right upper extremity arthritis. We will order x-rays to err on the side of caution, treating with Toradol and methocarbamol. I have independently reviewed the following tests: Chest x-ray:Findings: Bones intact. No dislocations. The visualized lungs are normal. IMPRESSION: No acute rib fractures. Discharge Plan Discharge Clinical Impression: Acute thoracic myofascial strain Patient Disposition: Home, Self-Care Instructions: Muscle Strain (ED) Additional Instructions: The x-rays of the back and thoracic spine were negative for acute injury, no arthritic changes were noted. Your exam was consistent with musculoskeletal strain. See home care instructions. Take the ketorolac as directed, this is an anti-inflammatory, take it with food. Use the methocarbamol for further pain, this is a muscle relaxant, to note, it will cause drowsiness do not drive or operate machinery while taking this medication. Follow up with your primary care provider as needed. Prescriptions: New ketorolac 10 mg tablet 10 mg PO Q6H PRN (Reason: pain) Qty: 20 0RF Rx Instructions: maximum total duration of 5 days from all oral, intranasal, or parenteral formulations. The patient received an intramuscular dose of Toradol here in the ER methocarbamol 750 mg tablet 750 mg PO Q8H PRN (Reason: pain) Qty: 10 0RF No Action acetaminophen [Tylenol Extra Strength] 500 mg tablet 1,000 mg PO QID PRN (Reason: fever or pain) Qty: 14 0RF Mirena 20 mcg/24 hours (8 yrs) 52 mg intrauterine device intrauterine diclofenac sodium 1 % gel 2 g topical QID PRN (Reason: joint pain) Qty: 100 0RF Rx Instructions: apply to single elbow, wrist or hand; for hand includes palm/fingers/back of hand bisacodyl [Dulcolax (bisacodyl)] 5 mg tablet,delayed release (DR/EC) 10 mg PO BEDTIME 30 Days Qty: 60 6RF ibuprofen 800 mg tablet 800 mg PO Q8H PRN (Reason: pain) 30 Days Qty: 90 3RF Interventions: ED Discharge Assessment Last Done: 01/26/25 02:28 Discharge Date/Time: 01/26/25 02:29 Print Language: Divehi
[2025-01-26 02:28] VITALS: BP 149/78; PULSE 75; RESP 20; TEMP 36.7; O2SAT 97
== END 2025-01-26 02:29 | disposition home or self-care (01) ==
PROVIDERS: Emergency Provider Emergency Medicine; PCP Internal Medicine
DX: S29.012A Strain of muscle and tendon of back wall of thorax, initial encounter (principal); X50.9XXA Other and unspecified overexertion or strenuous movements or postures, initial encounter; Y93.89 Activity, other specified; Y92.810 Car as the place of occurrence of the external cause; Y99.9 Unspecified external cause status
CPT/HCPCS: 71101; 96374; 99284; J1885

== ENCOUNTER → 2025-01-25 23:16 | Outpatient (BNV) | payer OTHER, SELFPAY | PROVIDERS: PCP Internal Medicine; Visit Provider Radiology Diagnostic Radiology | DX: M25.512 Pain in left shoulder (principal) | CPT/HCPCS: 71101 ==

== ENCOUNTER 2025-01-27 15:27 | Emergency (ER) | payer OTHER, SELFPAY ==
--- NOTE | ~2025-01-27 | CT_ITS ---
CLINICAL HISTORY: Intractable left scapular pain, R O PE, dissection CT angiography chest with contrast. 3D Postprocessing. Comparison: None provided Findings: The heart size is normal. RV/LV ratio is normal. Normal thoracic aorta without aneurysms or dissection. No central or large proximal pulmonary emboli. Remaining pulmonary arteries are poorly opacified, not well evaluated. The visualized thyroid and mediastinum are unremarkable. 2 mm nodule in the right middle lobe. Per Fleischner criteria: Low-risk patients: No routine follow-up required. High-risk patients: Optional CT at 12 months. No significant pleural effusion or pneumothorax. Hepatomegaly. Left adrenal gland nodule measuring 2 cm with an average Hounsfield unit of 9, may reflect adenoma. This may be further evaluated with biochemical assay and adrenal protocol imaging if indicated. The bones are intact. IMPRESSION: No evidence of PE or aortic dissection. Additional findings as described. This document has been electronically signed by: Tommy Gutierrez MD on 01/27/2025 23:53:04
--- NOTE | ~2025-01-27 | XR_ITS ---
CLINICAL HISTORY: left scapular pain 2 view chest x-ray Comparison: CR - XR RIBS LT MIN 3V W CXR1V - 01/25/25 23:35 EDT Findings: The lungs are clear. Normal size heart. No acute fracture. IMPRESSION: 1. No acute findings. This document has been electronically signed by: Tommy Gutierrez MD on 01/27/2025 20:06:43
[2025-01-27 15:32] VITALS: BP 181/105; PULSE 110; RESP 22; TEMP 36.7; O2SAT 99; BMI 31.5
--- NOTE | 2025-01-27 15:35 | ED.GENADULT ---
HPI - General Adult General Chief complaint: Extremity Problem Stated complaint: L shoulder pain no injury Time Seen by Provider: 01/27/25 18:32 Source: patient and old records reviewed Mode of arrival: ambulatory Limitations: no limitations History of Present Illness ED Provider: DR. Gabriel HPI narrative: 49-year-old female with left upper back pain x3 days over the left scapula pain is localized to this area with no radiation, no anterior chest wall pain, no shortness of breath, pain is worsening by movement, patient tried to keep herself in supine position face down which relieves the pain, no recent travel, no recent prolonged immobilization, no lower extremity swelling or tenderness. No history of PE or DVT. Patient was seen 2 days ago for same symptoms and was treated for myofascial pain. Patient is back today because pain is worse and no pain medication at home. Related Data Home Medications ?Medication ?Instructions ?Recorded ?Confirmed levonorgestrel 21 mcg/24 hr (up to intrauterine 10/17/22 09/16/24 8 years) 52 mg intrauterine device (Mirena) Previous Rx's ?Medication ?Instructions ?Recorded acetaminophen 500 mg tablet 1,000 mg (2 x 500 mg) PO QID PRN 11/30/20 (Tylenol Extra Strength) fever or pain #14 tabs bisacodyl 5 mg tablet,delayed 10 mg (2 x 5 mg) PO BEDTIME 30 03/23/21 release (Dulcolax (bisacodyl)) days #60 tabs diclofenac sodium 1 % topical gel 2 g topical QID PRN joint pain 10/17/22 #100 grams ibuprofen 800 mg tablet 800 mg PO Q8H PRN pain 30 days #90 09/16/24 tabs ketorolac 10 mg tablet 10 mg PO Q6H PRN pain #20 tabs 01/26/25 methocarbamol 750 mg tablet 750 mg PO Q8H PRN pain #10 tabs 01/26/25 cyclobenzaprine 10 mg tablet 10 mg PO TID PRN muscle spasm #14 01/27/25 tabs oxycodone 5 mg tablet 5 mg PO BID PRN pain #10 tabs 01/27/25 Allergies Allergy/AdvReac Type Severity Reaction Status Date / Time No Known Allergies Allergy Verified 01/27/25 15:34 Review of Systems Review of Systems: All other systems are reviewed and are negative Constitutional: Reports as per HPI and Reports no additional constitutional complaints Eyes: Reports as per HPI and Reports no additional eye complaints Reports system reviewed and no additional complaints, except as documented Cardiovascular: Reports as per HPI and Reports no additional cardiovascular complaints Respiratory: Reports as per HPI and Reports no additional respiratory complaints Gastrointestinal: Reports as per HPI and Reports no additional gastrointestinal complaints Genitourinary: Reports no additional female genitourinary complaints Musculoskeletal: Reports no additional musculoskeletal complaints Skin/Breast: Reports system reviewed and no additional complaints, except as docu Psychiatric: Reports no additional psychiatric complaints Endocrine: Reports no additional endocrine complaints Hematologic/Lymphatic: Reports no additional hematologic/lymphatic complaints Allergic/Immunologic: Reports no additional allergic/immunologic complaints Reports system reviewed and no additional complaints, except as documented and Reports Abnormal speech present COUNT INCLUDES THE [facility] Past Medical History Medical History Chronic pain in right shoulder Constipation Leukopenia Vitamin D deficiency Hx of herpes genitalis Pain of right heel Migraine headache without aura 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 Mother Colon cancer Medical history non-contributory Brother No problems noted. Sister No problems noted. Sister No problems noted. Son No problems noted. Daughter No problems noted. Maternal Grandmother HTN (hypertension) Maternal Aunt HTN (hypertension) Social History Social History Household Members: Family Housing: House Are you a primary respiratory care practitioner to a significant other at home: No Do you presently have visiting nurse or other home services: No Alcohol intake: current Alcohol intake frequency: does not drink Patient Tobacco Use Status: Never used Tobacco e-Cigarette/Vaping Use: Never Used Second Hand Smoke Exposure: No Advance Directives: Yes Advance Directives on File: Yes Advance Directives Date on File: 01/15/24 Do you have a plan to hurt others: No Plan service: No Current occupational status: employed Current occupation: RN/ right hand dominant Current occupational exposures/hazards: No Cognitive needs: No Hearing needs: No Vision needs: Yes Physical Exam ED Vital Signs: Vital Signs - 24 hr 01/27/25 15:32 01/27/25 19:03 01/27/25 21:59 Temperature 98.1 F 98.2 F 97.9 F Pulse Rate 110 H 79 75 Respiratory Rate 22 H 22 H 18 Blood Pressure 181/105 H 170/85 H 143/74 H Pulse Oximetry 99 100 100 Oxygen Delivery Method Room Air Room Air Room Air BMI result Body Mass Index 31.5 Vital signs have been reviewed and appear to be correct. Blood pressure elevated. Heart rate elevated, Respiratory rate elevated, Temperature normal. Oxygen saturation normal. Appearance: Alert. Oriented X3. in acute distress secondary to left scapular pain. Head: Normal external exam. Normocephalic. Atraumatic. No Brito signs noted. No raccoon eyes noted Eyes: PERRLA. EOMI. Conjunctiva and sclera normal. Eyelids normal. ENT: TM's Normal. Pharynx normal. Uvula midline. Moist mucous membranes. No trismus noted. No drooling noted. No muffled voice noted. Neck: Normal inspection. Neck supple. FROM. No adenopathy. Thyroid Normal. No meningeal signs. No neck mass noted. CVS: Normal heart rate and rhythm. Heart sound normal. No murmurs noted. Pulses normal throughout. Respiratory: No respiratory distress. Painless inspiration. Breath sounds normal. No wheezes/rales/rhonchi noted. Chest nontender. No accessory muscle usage noted or decreased air movement noted. Abdomen: Soft and nontender. Bowel sounds normal in all 4 quadrants. No distention noted. No organomegaly noted. No visible injury noted. Back: No CVA tenderness. Full range of motion noted. Skin: Skin warm and dry. Normal skin color. Normal skin turgor. No rashes/lesions/lacerations noted. Extremities: No lower extremity edema. Extremities exhibit normal range of motion. Extremities nontender. Neuro: Oriented X 3. Cranial nerve exam: II-XII are grossly intact No motor deficit. No sensory deficit. Reflexes normal. Course Course Course Narrative: RME, this is a rapid medical exam performed by Rhys Carpenter please refer to primary provider for complete H&P- 49-year-old female presents for evaluation of left posterior shoulder pain. She was seen here a few days ago for similar and was given ketorolac and methocarbamol. She reports this is not helping. Denies any injury. Her pain is worse with sitting. Plan for labs this was not done at the last visit. I do suspect musculoskeletal origin is most likely Reevaluation(s) Reevaluation #1: Left scapular pain with no trauma, chest x-ray shows no fracture, no other intrathoracic abnormality on the chest x-ray. EKG shows no acute changes troponin is slightly elevated with no delta change the case was discussed and reviewed by Dr. Winters on-call for Cardiology patient will be safe to be discharged home with pain control, does not think it is cardiac event. Because the left scapular pain was not precipitated by any other injuries will consider CT with IV contrast to rule out any occult pulmonary embolism/dissection. Case signed out to Dr. Templeton. Time: 21:00 Medications Administered Discontinued Medications Generic Name Dose Route Start Last Admin Trade Name Freq PRN Reason Stop Dose Admin Ibuprofen 600 mg 01/27/25 18:56 01/27/25 19:22 Ibuprofen 600 Mg Tablet PO 01/27/25 18:57 600 mg ONCE ONE Administration Iohexol 75 ml 01/27/25 22:25 01/27/25 22:26 Iohexol 350 Mg/Ml 100 Ml Infus..Btl IV 01/27/25 22:26 75 ml ONCE ONE Administration Oxycodone HCl 5 mg 01/27/25 18:56 01/27/25 19:22 Oxycodone Hcl Immed Release 5 Mg Tablet PO 01/27/25 18:57 5 mg ONCE ONE Administration Oxycodone HCl 5 mg 01/27/25 23:45 01/27/25 23:55 Oxycodone Hcl Immed Release 5 Mg Tablet PO 01/27/25 23:46 5 mg ONCE ONE Administration Medical Decision Making Medical Decision Making [facility] Narrative: I received sign-out from my colleague Dr. Gabriel. CT scan of the chest/shoulder does not show any acute abnormality, no evidence of PE or aortic dissection. Patient seems to be doing better with p.o. oxycodone Differential Diagnosis Differential Diagnoses: The differential diagnosis associated with the presentation includes (ACS, pulmonary embolism, rib fracture, scapular fracture, pneumonia, pneumothorax, myofascial thoracic pain.) Admission/Observation Consideration of admission/observation: Escalation of care including admission/observation considered Consult Healthcare Provider Management of the patient was discussed with: Blood Bank Custodian (Dr. Winters) Lab Data MDM Lab Attestation statement: I reviewed the patient's lab results. 01/27/25 15:52 01/27/25 15:52 Labs: Lab Results 01/27/25 01/27/25 Range/Units 15:52 19:16 WBC 5.2 (4.8-10.8) X10*3/uL RBC 4.15 L (4.20-5.50) X10*6/uL Hgb 12.8 (12.0-16.0) g/dl Hct 38.3 (37.0-47.0) % MCV 92.3 (80.0-98.0) fL MCH 30.8 (27.0-33.0) pg MCHC 33.4 (31.0-35.0) g/dl RDW 12.4 (11.0-16.0) % Plt Count 276 (160-400) X10*3/uL MPV 10.2 (9.4-12.3) fL Immature Gran % (Auto) 0.2 (0.0-0.4) % Neut % (Auto) 37.0 L (45-73) % Lymph % (Auto) 53.4 H (20-40) % Slope % (Auto) 6.7 (2-11) % Eos % (Auto) 1.9 (0-4) % Baso % (Auto) 0.8 (0-2) % Lymph # (Auto) 2.8 (1.2-4.9) X10*3/uL Slope # (Auto) 0.4 (0.1-1.2) X10*3/uL Eos # (Auto) 0.1 (0.0-0.4) X10*3/uL Baso # (Auto) 0.0 (0.0-0.2) X10*3/uL Abs Immat Gran (auto) 0.01 (0.00-0.03) X10*3/uL Absolute Neuts (auto) 1.9 L (2.0-8.3) x10*3/uL Absolute Nucleated RBC 0.000 (0.0-0.012) X10*3/uL Nucleated RBC % (auto) 0.0 (0.0-0.2) /100WBC D-Dimer High Sensitivty < 150 NG/ML Sodium 143 (135-145) mmol/L Potassium 3.4 (3.3-5.1) mmol/L Chloride 108 (96-108) mmol/L Carbon Dioxide 25 (22-29) mmol/L Anion Gap 13 (12-20) BUN 8 L (9-16) mg/dL Creatinine 0.66 (0.5-1.4) mg/dL Estim Creat Clear Calc 97.6 Estimated GFR > 60 Random Glucose 93 (60-115) mg/dL Calcium 9.6 (8.4-10.2) mg/dL Total Bilirubin 0.4 (0.0-1.0) mg/dL AST 23 (5-31) U/L ALT 19 (0-31) U/L Alkaline Phosphatase 104 (39-117) U/L Troponin I High Sens 19.1 H 21.9 H (<3.5-17.0) ng/L Total Protein 8.1 H (6.5-8.0) g/dL Albumin 4.7 (3.5-5.0) g/dL Lipase 11 (8-78) U/L Independent Interpretation I performed an independent interpretation of an: Plain X-Ray (Chest: No acute intrathoracic pathology.) Radiology Impression Discussion of test interpretation with radiology: I have reviewed the radiologist's reading. Radiologist Impression: The heart size is normal. RV/LV ratio is normal. Normal thoracic aorta without aneurysms or dissection. No central or large proximal pulmonary emboli. Remaining pulmonary arteries are poorly opacified, not well evaluated. The visualized thyroid and mediastinum are unremarkable. 2 mm nodule in the right middle lobe. Per Fleischner criteria: Low-risk patients: No routine follow-up required. High-risk patients: Optional CT at 12 months. No significant pleural effusion or pneumothorax. Hepatomegaly. Left adrenal gland nodule measuring 2 cm with an average Hounsfield unit of 9, may reflect adenoma. This may be further evaluated with biochemical assay and adrenal protocol imaging if indicated. The bones are intact. IMPRESSION: No evidence of PE or aortic dissection. Additional findings as described. Discharge Plan Discharge Clinical Impression: Myofascial pain on left side Patient Disposition: Home, Self-Care Instructions: Musculoskeletal Pain (ED) Prescriptions: New oxycodone 5 mg tablet 5 mg PO BID PRN (Reason: pain) Qty: 10 0RF Rx Instructions: Partial Fill upon patient request. cyclobenzaprine 10 mg tablet 10 mg PO TID PRN (Reason: muscle spasm) Qty: 14 0RF No Action acetaminophen [Tylenol Extra Strength] 500 mg tablet 1,000 mg PO QID PRN (Reason: fever or pain) Qty: 14 0RF ketorolac 10 mg tablet 10 mg PO Q6H PRN (Reason: pain) Qty: 20 0RF Rx Instructions: maximum total duration of 5 days from all oral, intranasal, or parenteral formulations. The patient received an intramuscular dose of Toradol here in the ER methocarbamol 750 mg tablet 750 mg PO Q8H PRN (Reason: pain) Qty: 10 0RF Mirena 20 mcg/24 hours (8 yrs) 52 mg intrauterine device intrauterine diclofenac sodium 1 % gel 2 g topical QID PRN (Reason: joint pain) Qty: 100 0RF Rx Instructions: apply to single elbow, wrist or hand; for hand includes palm/fingers/back of hand bisacodyl [Dulcolax (bisacodyl)] 5 mg tablet,delayed release (DR/EC) 10 mg PO BEDTIME 30 Days Qty: 60 6RF ibuprofen 800 mg tablet 800 mg PO Q8H PRN (Reason: pain) 30 Days Qty: 90 3RF Referrals: Cammy Mujica MD [Primary Care Provider, Internal Medicine] Print Language: Malay
--- NOTE | 2025-01-27 15:36 | ECG_ITS ---
Test Reason : PAIN Blood Pressure : */* mmHG Vent. Rate : 87 BPM Atrial Rate : 87 BPM P-R Int : 140 ms QRS Dur : 86 ms QT Int : 358 ms P-R-T Axes : 39 -22 6 degrees QTcB Int : 430 ms Normal sinus rhythm Minimal voltage criteria for LVH, may be normal variant ( R in aVL ) Borderline ECG No previous ECGs available Referred By: Mark Carpenter Electronically Signed By: Homer Winters
[2025-01-27 16:03] LABS: MANUAL DIFF FLAG NO
[2025-01-27 16:04] LABS: Basophils Percent Auto 0.8 % (0-2); Eosinophils Absolute Auto 0.1 X10*3/uL (0.0-0.4); Eosinophils Percent Auto 1.9 % (0-4); Hematocrit 38.3 % (37.0-47.0); Hemoglobin 12.8 g/dl (12.0-16.0); Imm Gran Abs Auto 0.01 X10*3/uL (0.00-0.03); Imm Gran Pct Auto 0.2 % (0.0-0.4); Lymphocytes Absolute Auto 2.8 X10*3/uL (1.2-4.9); Lymphocytes Percent Auto 53.4 % (20-40); Mean Corpuscular HGB Conc 33.4 g/dl (31.0-35.0); Mean Corpuscular Hemoglobin 30.8 pg (27.0-33.0); Mean Corpuscular Volume 92.3 fL (80.0-98.0); Mean Platelet Volume 10.2 fL (9.4-12.3); Monocytes Absolute Auto 0.4 X10*3/uL (0.1-1.2); Monocytes Percent Auto 6.7 % (2-11); Neutrophils Absolute Auto 1.9 x10*3/uL (2.0-8.3); Platelet Count 276 X10*3/uL (160-400); Red Blood Count 4.15 X10*6/uL (4.20-5.50); Red Cell Distribution Width 12.4 % (11.0-16.0); White Blood Count 5.2 X10*3/uL (4.8-10.8)
[2025-01-27 16:21] LABS: Alanine Aminotransferase 19 U/L (0-31); Albumin Level 4.7 g/dL (3.5-5.0); Alkaline Phosphatase 104 U/L (39-117); Anion Gap 13 (12-20); Aspartate Amino Transferase 23 U/L (5-31); Bilirubin Total 0.4 mg/dL (0.0-1.0); Blood Urea Nitrogen 8 mg/dL (9-16); Calcium 9.6 mg/dL (8.4-10.2); Carbon Dioxide 25 mmol/L (22-29); Chloride 108 mmol/L (96-108); Creatinine Clr Calc Pharmacy 97.6; Estimated Glomerular Filt Rate > 60; Glucose Random 93 mg/dL (60-115); Lipase 11 U/L (8-78); Potassium 3.4 mmol/L (3.3-5.1); Sodium 143 mmol/L (135-145); Total Protein 8.1 g/dL (6.5-8.0)
[2025-01-27 16:28] LABS: Troponin-I High Sensitivity 19.1 ng/L (<3.5-17.0)
--- NOTE | 2025-01-27 18:32 | PC.NURSE ---
Pt laying on stomach in room, pt reporting her left shoulder pain is getting worse. She was seen here 01/25 given muscle relaxers and pain medication, she states they have not been helping her at all, she stated that the pain is becoming more consistant and sharper. Pt states she attempted to put a lidocaine patch on it last night and it made the pain 10x worse. Pt denies any new traumas/falls. Repeat troponin ordered, pt given call juarez, awaiting provider grain picker at this time. Pt given Ice pack at this time to place on her shoulder area.
[2025-01-27 19:03] VITALS: BP 170/85; PULSE 79; RESP 22; TEMP 36.8; O2SAT 100
[2025-01-27] MEDS: oxyCODONE HCl Immed Release 5 MG TABLET PO ×2 (19:22→23:55)
[2025-01-27] MEDS: Ibuprofen 600 MG TABLET PO (19:22)
[2025-01-27 19:40] LABS: Troponin-I High Sensitivity 21.9 ng/L (<3.5-17.0)
[2025-01-27 19:49] LABS: D Dimer High Sensitivity < 150 NG/ML
[2025-01-27 21:59] VITALS: BP 143/74; PULSE 75; RESP 18; TEMP 36.6; O2SAT 100
[2025-01-27] MEDS: iohexoL 350 MG/ML 100 ML INFUS..BTL 75 ML IV (22:26)
[2025-01-28 00:12] VITALS: BP 157/99; PULSE 110; RESP 18; TEMP 36.7; O2SAT 99
== END 2025-01-28 00:23 | disposition home or self-care (01) ==
PROVIDERS: Emergency Medicine; Physician Assistant; Emergency Provider Emergency Medicine; PCP Internal Medicine
DX: M79.18 Myalgia, other site (principal); M25.512 Pain in left shoulder; Z79.899 Other long term (current) drug therapy
CPT/HCPCS: 36415; 71046; 71275; 80053; 83690; 84484; 85025; 85379; 93005; 99284; 99285; Q9967

== ENCOUNTER → 2025-01-27 15:36 | Outpatient (BNV) | payer OTHER, SELFPAY | PROVIDERS: Emergency Provider Emergency Medicine; PCP Internal Medicine; Visit Provider Internal Medicine Cardiovascular Disease | DX: R07.9 Chest pain, unspecified (principal) | CPT/HCPCS: 93010 ==

== ENCOUNTER → 2025-01-27 18:33 | Outpatient (BNV) | payer OTHER, SELFPAY | PROVIDERS: Emergency Provider Emergency Medicine; PCP Internal Medicine; Visit Provider Radiology Diagnostic Radiology | DX: M25.512 Pain in left shoulder (principal) | CPT/HCPCS: 71046 ==

== ENCOUNTER 2025-01-29 04:12 | Emergency (ER) | payer OTHER, SELFPAY ==
[2025-01-29 04:19] VITALS: BP 146/82; PULSE 85; RESP 24; TEMP 36.4; O2SAT 100; BMI 29.0
--- NOTE | 2025-01-29 04:56 | PC.NURSE ---
Patient complaining of severe pain in left upper back/shoulder, patient requesting to be medicated for pain. Dr. Templeton notified. This RN informed patient and her mother that we can medicate her with Oxycodone 5 mg PO. Patient refused to be medicated with Oxycodone stating that she tried it at home yesterday and this morning after d/c from ED with no relief in pain. Dr. Templeton made aware, no new orders at this time. This RN offered to patient a warm pack. Patient refused. Patient's mother at bedside, call juarez placed within patient's reach. Patient awaiting to be seen by ED provider.
[2025-01-29] MEDS: oxyCODONE HCl Immed Release 5 MG TABLET PO (05:59)
--- NOTE | 2025-01-29 06:18 | PC.NURSE ---
Patient continue to complaint of 10/ pain in left upper back/shoulder. Dr. Templeton notified. This RN offered and medicated to patient Oxycodone 5 mg PO, effect pending. Patient's mother at bedside. Call juarez within patient's reach.
--- NOTE | 2025-01-29 07:12 | ED_ITS ---
HPI - Back Pain/Injury General Chief Complaint: Back Pain/Injury Stated Complaint: Left shoulder & Flank pain 05/21,muscle spasm 01/26 Time Seen by Provider: 01/29/25 07:12 Source: patient Mode of arrival: ambulatory Limitations: no limitations History of Present Illness ED Provider: HPI Narrative: 49-year-old woman in the rear presenting for left upper back pain this is her 3rd visit for the same, prior to that she has had fairly extensive workup, has been discharged home with pain medications, states pain is there, worse with movement, feels better when she lies flat. No fevers or chills, no pleurisy reported. MD elicited complaint: back pain Related Data Home Medications ?Medication ?Instructions ?Recorded ?Confirmed levonorgestrel 21 mcg/24 hr (up to intrauterine 09/16/24 8 years) 52 mg intrauterine device (Mirena) Previous Rx's ?Medication ?Instructions ?Recorded acetaminophen 500 mg tablet 1,000 mg (2 x 500 mg) PO Q ID PRN 11/30/20 (Tylenol Extra Strength) fever or pain #14 tabs bisacodyl 5 mg tablet,delayed 10 mg (2 x 5 mg) PO BEDT BERNICE 30 03/23/21 release (Dulcolax (bisacodyl)) days #60 tabs diclofenac sodium 1 % topical gel 2 g topical QID PRN joint pain 10/17/22 #100 grams ibuprofen 800 mg tablet 800 mg PO Q8H PRN pain 30 da ys #90 09/16/24 tabs ketorolac 10 mg tablet 10 mg PO Q6H PRN pain #20 ta bs 01/26/25 methocarbamol 750 mg tablet 750 mg PO Q8H PRN pain #10 tabs 01/26/25 cyclobenzaprine 10 mg tablet 10 mg PO TID PRN muscle s pasm #14 01/27/25 tabs oxycodone 5 mg tablet 5 mg PO BID PRN pain #10 tab s 01/27/25 lidocaine 4 % topical patch 1 patch topical DAILY PRN pain #10 01/29/25 (Aspercreme (lidocaine)) ea prednisone 20 mg tablet 40 mg (2 x 20 mg) PO DAILY 5 days 01/29/25 #10 tabs Allergies Allergy/AdvReac Type Severity Reaction Status Date / Time No Known Allergies Allergy Verified 01/29/25 04:20 Review of Systems Constitutional: Constitutional: Reports as per [facility] Past Medical History Medical History Chronic pain in right shoulder Constipation Leukopenia Vitamin D deficiency Hx of herpes genitalis Pain of right heel Migraine headache without aura 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 Mother Colon cancer Medical history non-contributory Brother No problems noted. Sister No problems noted. Sister No problems noted. Son No problems noted. Daughter No problems noted. Maternal Grandmother HTN (hypertension) Maternal Aunt HTN (hypertension) Social History Social History Household Members: Family Housing: House Are you a primary manager intensive care unit to a significant other at home: No Do you presently have visiting nurse or other home services: No Alcohol intake: current Alcohol intake frequency: does not drink Patient Tobacco Use Status: Never used Tobacco Smoked in Last 30 Days: No e-Cigarette/Vaping Use: Never Used Second Hand Smoke Exposure: No Use of substances other than those prescribed or required for medical reasons: No Advance Directives: Yes Advance Directives on File: Yes Advance Directives Date on File: 01/15/24 Patient : No service: No Current occupational status: employed Current occupation: RN/ right hand dominant Current occupational exposures/hazards: No Cognitive needs: No Hearing needs: No Vision needs: Yes Physical Exam Vital Signs: Vital Signs: Last Vital Signs Temp 98.1 F 01/29/25 11:12 Pulse 68 01/29/25 11:12 Resp 16 01/29/25 11:12 BP 148/80 H 01/29/25 11:12 Pulse Ox 98 01/29/25 11:12 O2 Del Method Room Air 01/29/25 11:12 BMI result Body Mass Index 29.0 Const: Other: Patient examined prone as she stated this is the most convenient and pain-free position for her Radial ulnar pulses +2 bilaterally Radial ulnar medial motor sensory intact bilateral upper extremities She has no neck tenderness no mid back tenderness no lower back tenderness either paraspinal or bony prominences, no step-offs, no motor or sensory deficits bilateral lower extremities Her tenderness are located all along the medial border of the scapula on the left side Lungs are clear bilaterally Medications Administered Discontinued Medications Generic Name Dose Route Start Last Admin Trade Name Jackq PRN Reason Stop Dose Admin Dexamethasone 10 mg 01/29/25 08:18 01/29/25 08:49 Dexamethasone 2 Mg Tablet PO 01/29/25 08:19 10 mg ONCE ONE Administration Ketorolac Tromethamine 15 mg 01/29/25 08:18 01/29/25 08:49 Ketorolac Tromethamine 15 Mg/Ml Vial IM 01/29/25 08:19 15 mg ONCE ONE Administration Lidocaine 1 patch 01/29/25 07:17 01/29/25 07:32 Lidocaine 4 % Patch Adh..Patch TRANSDERMA 01/29/25 07:18 1 patch ONCE ONE Administration Protocol Lidocaine HCl 10 ml 01/29/25 07:17 01/29/25 07:32 Lidocaine Hcl 1 % 20 Ml Vial INFILTRATI 01/29/25 07:18 10 ml ONCE ONE Administration Oxycodone HCl 5 mg 01/29/25 05:45 01/29/25 05:59 Oxycodone Hcl Immed Release 5 Mg Tablet PO 01/29/25 05:46 5 mg ONCE ONE Administration Medical Decision Making Medical Decision Making [facility] Narrative: I reviewed patient's prior ED visits of workup, reassuringly during her last visit she has had a CTA there is no underlying cardiopulmonary catastrophic findings, her presentation is consistent with scapulothoracic dyskinesia, verbal consent was obtained for trigger point injections along her medial border of the scapula, thereafter see my discharge instructions, this we will likely need physical therapy, anti-inflammatories, I will start her pus potentially on s teroids, maybe muscle relaxants although these tend not to be as helpful in dyskinesis Procedure note: Verbal consent for trigger point injections with 1% lidocaine obtained General area along the medial border of the scapula cleaned with alcohol A total of 10 cc 1% lidocaine injected along 5 trigger points Patient tolerated procedure well, there was no bleeding After the injection patient was actually able to stand up which she states she has not been able to do in a few days and move her shoulder, Differential Diagnosis Differential Diagnoses: The differential diagnosis associated with the presentation includes Pneumothorax, PE, myositis, scapulothoracic dyskinesia, neuropathy Discharge Plan Discharge Clinical Impression: Dyskinesis of left scapula Patient Disposition: Home, Self-Care Additional Instructions: Continue with steroids starting tomorrow, 1st dose given today I will prescribe lidocaine patches but I think what may help even more is that if you get [id number]-oqibftg capsaicin ointment patches they come in the packet 3, you cut them into strips and have your mom apply this strips along the area of spasm over your spine and along the shoulder blade Then bag of ice to the area for 20 minutes followed by heating pad for 20 minutes few times a day You may need physical therapy for this Gentle [id number] exercises of the shoulder Follow up with the PCP you may need physical therapy Your shoulder blade area was injected today, if there is any issues after the injection and you feel like the area maybe getting infected which is extremely unlikely come back to the ER otherwise follow up with the PCP Prescriptions: New lidocaine [Aspercreme (lidocaine)] 4 % adhesive patch,medicated 1 patch topical DAILY PRN (Reason: pain) Qty: 10 0RF prednisone 20 mg tablet 40 mg PO DAILY 5 Days Qty: 10 0RF No Action acetaminophen [Tylenol Extra Strength] 500 mg tablet 1,000 mg PO QID PRN (Reason: fever or pain) Qty: 14 0RF oxycodone 5 mg tablet 5 mg PO BID PRN (Reason: pain) Qty: 10 0RF Rx Instructions: Partial Fill upon patient request. cyclobenzaprine 10 mg tablet 10 mg PO TID PRN (Reason: muscle spasm) Qty: 14 0RF ketorolac 10 mg tablet 10 mg PO Q6H PRN (Reason: pain) Qty: 20 0RF Rx Instructions: maximum total duration of 5 days from all oral, intranasal, or parenteral formulations. The patient received an intramuscular dose of Toradol here in the ER methocarbamol 750 mg tablet 750 mg PO Q8H PRN (Reason: pain) Qty: 10 0RF Mirena 20 mcg/24 hours (8 yrs) 52 mg intrauterine device intrauterine diclofenac sodium 1 % gel 2 g topical QID PRN (Reason: joint pain) Qty: 100 0RF Rx Instructions: apply to single elbow, wrist or hand; for hand includes palm/fingers/back of hand bisacodyl [Dulcolax (bisacodyl)] 5 mg tablet,delayed release (DR/EC) 10 mg PO BEDTIME 30 Days Qty: 60 6RF ibuprofen 800 mg tablet 800 mg PO Q8H PRN (Reason: pain) 30 Days Qty: 90 3RF Print Language: Guinean
[2025-01-29] MEDS: Lidocaine 4 % Patch ADH..PATCH 1 PATCH TRANSDERMA (07:32)
[2025-01-29] MEDS: Lidocaine HCl 1 % 20 ML VIAL 10 ML INFILTRATI (07:32)
[2025-01-29] MEDS: Ketorolac Tromethamine 15 MG/ML VIAL IM (08:49)
[2025-01-29] MEDS: dexAMETHasone 2 MG TABLET 10 MG PO (08:49)
[2025-01-29 11:12] VITALS: BP 148/80; PULSE 68; RESP 16; TEMP 36.7; O2SAT 98
[2025-01-29 11:15] VITALS: BP 148/80; PULSE 68; RESP 16; TEMP 36.7; O2SAT 98
== END 2025-01-29 11:26 | disposition home or self-care (01) ==
PROVIDERS: Emergency Provider Emergency Medicine
DX: G24.9 Dystonia, unspecified (principal); M54.50 Low back pain, unspecified; Z79.899 Other long term (current) drug therapy
CPT/HCPCS: 96372; 99284; J1885; J2003; J8540

== ENCOUNTER 2025-02-01 08:07 | Outpatient (AMB) | payer OTHER, SELFPAY ==
--- NOTE | 2025-02-01 08:08 | MHC.OFFWIV ---
Intake Vital Signs 02/01/25 08:10 Height 5 ft 2 in Weight 173 lb BMI 31.6 BP 138/90 H Blood Pressure Location Rt brachial Position Sitting Respiration 16 Pulse 85 Pulse Source Pulse Oximeter Temp 97.8 F Temp Source Oral Pulse Oximetry (%) 99 Oxygen Delivery Method Room Air Intake Visit Reasons: EP LT shoulder pain Intake Note: Pt is here today c/o Lt shoulder pain no injury noted was also seen in the [facility] ER last week Patient Tobacco Use Status: Never used Tobacco Allergies No Known Allergies Allergy (Verified 02/01/25 08:14) Medication List - Last Reconciled 02/01/25 by Flor Pulliam NP ibuprofen 800 mg PO Q8H PRN 30 days ketorolac 10 mg PO Q6H PRN levonorgestrel (Mirena) intrauterine lidocaine 4% (Aspercreme (lidocaine)) 1 patch topical DAILY PRN methocarbamol 750 mg PO Q8H PRN oxycodone 5 mg PO BID PRN prednisone 40 mg (2 x 20 mg) PO DAILY 5 days HPI HPI Comments History of Present Illness Details 49 y/o Female patient who presents to the walk in clinic with c/o left Shoulder pain. She does have h/o left shoulder pain for over a month now. She has been seen multiple times at [facility] (01/26, 01/27,& 01/29) for similar concern. Last ED visit she received Trigger point injection with 1% lidocaine to the left scapula - with minimal relief. She was also discharged home with Prednisone taper, Lidocaine patches and Ibuprofen. Today Patient reports that nothing has worked for her and continues to have severe pain and unable to return to work. All images done in the previous ED visits negative. She did see Orthopedics back in Sep for the right shoulder pain and received PT with good relief. Pt asking to be referred back to Ortho/PT. 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 Mother Colon cancer Medical history non-contributory Brother No problems noted. Sister No problems noted. Sister No problems noted. Son No problems noted. Daughter No problems noted. Maternal Grandmother HTN (hypertension) Maternal Aunt HTN (hypertension) Social History Household Members: Family Housing: House Are you a primary health care sanitary technician to a significant other at home: No Do you presently have visiting nurse or other home services: No Alcohol intake: current Alcohol intake frequency: does not drink Patient Tobacco Use Status: Never used Tobacco e-Cigarette/Vaping Use: Never Used Second Hand Smoke Exposure: No Advance Directives Date on File: 01/15/24 service: No Current occupational status: employed Current occupation: RN/ right hand dominant Current occupational exposures/hazards: No Cognitive needs: No Hearing needs: No Vision needs: Yes Physical Exam Vital Signs: Last Vital Signs Temp 97.8 F 02/01/25 08:10 Pulse 85 02/01/25 08:10 Resp 16 02/01/25 08:10 BP 138/90 H 02/01/25 08:10 Pulse Ox 99 02/01/25 08:10 Oxygen Delivery Method Room Air 02/01/25 08:10 BMI result Body Mass Index 31.6 Assessment & Plan Assessment & Plan (1) Left shoulder pain: Code(s): M25.512 - Pain in left shoulder Qualifiers: Chronicity: acute Qualified Code(s): M25.512 - Pain in left shoulder Plan: Placed referral back for PT and Orthopedics. Continue with NSAIDs, Lido patches and Ice/Hot Orders: Orders PT Evaluation and Treatment Today M25.512 - Pain in left shoulder Referrals Orthopedics Referral M25.512 - Pain in left shoulder Medications: Discontinued acetaminophen (Tylenol Extra Strength) Discontinued Reason: Patient Completed Course 1,000 mg (2 x 500 mg) PO QID PRN 14 tabs 0RF fever or pain cyclobenzaprine Discontinued Reason: No Longer Medically Relevant 10 mg PO TID PRN 14 tabs 0RF muscle spasm diclofenac sodium 1% apply to single elbow, wrist or hand; for hand includes palm/fingers/back of hand Discontinued Reason: Patient Completed Course 2 grams topical QID PRN 100 grams 0RF joint pain bisacodyl (Dulcolax (bisacodyl)) Discontinued Reason: Patient Completed Course 10 mg (2 x 5 mg) PO BEDTIME 30 days 60 tabs 6RF K58.1 - Irritable bowel syndrome with constipation Coding Level of Care Code Est Pt Level 4 (66508) Diagnoses Acute pain of left shoulder M25.512 Chronicity: acute Time Spent (min) 20
[2025-02-01 08:10] VITALS: BP 138/90; PULSE 85; RESP 16; TEMP 36.6; O2SAT 99; BMI 31.6
== END 2025-02-01 09:23 | disposition home or self-care (01) ==
PROVIDERS: PCP Internal Medicine; Visit Provider Nurse Practitioner Family
DX: M25.512 Pain in left shoulder (principal)

== ENCOUNTER → 2025-02-01 08:07 | Outpatient (BNVA) | payer OTHER, SELFPAY | PROVIDERS: PCP Internal Medicine; Visit Provider Nurse Practitioner Family | DX: M25.512 Pain in left shoulder (principal) | CPT/HCPCS: 99212 ==

== ENCOUNTER 2025-03-04 08:00 | Outpatient (RCR) | payer OTHER, SELFPAY ==
--- NOTE | 2025-02-24 12:13 | MHC.PT.EP ---
[facility] [place] Office [place] Office [place] Office [address] Maxine Jin [address] [phone] F: [phone] F: [phone] F: [phone] F: [phone] Physical Therapy Plan of Care Date of Evaluation: 02/24/25 Date of Surgery: n/a Diagnosis: L shoulder pain Assessment: Patient is a 49 year old female presenting to PT with complaints of pain in her L shoulder. Pt reports onset of pain began about 1 month ago due to insidious onset. She presents today with impairments in pain, shoulder ROM, posture, shoulder strength. 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 Pt expresses usp goal of reducing pain, and is motivated to work towards this in PT. Clinical presentation today is most consistent with signs and sx associated with L shoulder pain and pt will benefit from skilled PT 2 week x 4 weeks to address the following problems and impairments noted upon evaluation: pain, shoulder ROM, posture, shoulder strength. These problems limit the patient with the following functional activities: lifting, reaching, ADLs, wrok. The prescribed treatment plan of care is medically necessary. Co-morbidities of none were identified and taken into considerations of plan of care. Pt was educated on HEP, role of PT, prognosis, POC. Frequency and Duration: The patient will be seen 2 x week x 4 weeks Short Term Goals: Pt will demonstrate pain free L shoulder ROM in 2 weeks. Pt will demonstrate shoulder MMT improved by 1/3 grade on L in 2 weeks. Pt will demonstrate improved posture as evidence by min to no cues during the session in 2 weeks. Usp Goals: Pt will demonstrate improved SPADI 13 score points in 4 weeks for improved functional mobility. Pt will demonstrate ability to reach with min to no pain in 4 weeks for improved tolerance to ADLs. Pt will demonstrate ability to lift at her PLOF with min to no pain in 4 weeks for improved tolerance to work and household duties. Treatment Plan: Modalities to reduce pain, spasms and effusion. Manual therapy to restore motion and function. Therapeutic exercise to improve strength and flexibility. Neuromuscular re-education for posture and balance. Therapeutic activities to return to functional activities of daily living. Electronically signed by: Jyoti Ortega, PT, DPT, ATC Please sign and return to therapist. Thank you for your referral.
--- NOTE | 2025-04-02 14:10 | MHC.PT.DC ---
[facility] [place] Office [place] Office [place] Office [address] [phone] F: [phone] F: [phone] F: [phone] F: [phone] Physical Therapy Discharge Report Diagnosis: L shoulder pain Date of Surgery: n/a Date of Evaluation: 02/24/25 Date of Discharge: 04/02/25 Treatments to Date: 4 Cancellations to Date: 0 No Shows to Date: 0 Discharge Status: Discharge Summary: At last visit pt was placed on 30 day hold. Pt has not called in 30 days so therefore to be d/c per plan at last visit. Electronically signed by: Jyoti Ortega, PT, DPT, ATC Please sign and return to therapist. Thank you for your referral.
== END 2025-04-02 14:10 | disposition home or self-care (01) ==
LOC: HO.PTCHIC 08:00
PROVIDERS: PCP Internal Medicine; Visit Provider Nurse Practitioner Family
DX: M25.512 Pain in left shoulder (principal)
CPT/HCPCS: 97110; 97161

== ENCOUNTER 2025-03-22 13:34 | Outpatient (REF) | payer OTHER, SELFPAY ==
--- NOTE | ~2025-03-22 | XR_ITS ---
EXAMINATION: XR SHOULDER 2 OR MORE VIEWS LEFT HISTORY: M25.512 - Pain in left shoulder COMPARISON: There are no prior studies available for comparison. FINDINGS: Three views of the left shoulder are submitted. Osseous mineralization is normal. There is no fracture or dislocation. The glenohumeral and acromioclavicular joint spaces are preserved. The soft tissues are unremarkable. XR/XR shoulder LT min 2V IMPRESSION: Unremarkable examination of the left shoulder. Electronically signed by: Jluis Watson MD 03/22/2025 03:13 PM EDT
== END 2025-03-22 13:35 | disposition home or self-care (01) ==
LOC: HO.HOSX 13:34
PROVIDERS: PCP Internal Medicine; Visit Provider Physician Assistant
DX: M89.8X1 Other specified disorders of bone, shoulder (principal); M25.512 Pain in left shoulder
CPT/HCPCS: 73030; 99212

== ENCOUNTER 2025-03-22 13:34 | Outpatient (AMB) | payer OTHER, SELFPAY ==
--- NOTE | 2025-03-22 13:45 | MHC.OFFVIS ---
Vital Signs 03/22/25 13:52 Height 5 ft 2 in Weight 173 lb BMI 31.6 Intake Visit Reasons: New prob-Lt shoulder pain Intake Note: Oanh is a 49 yea rold female who presents today for an ER follow up of left shoulder pain. Patient reports that she is unsure if she injured herself however her pain started the week of January 25, 2025. Her pain came on suddenly and had gotten worse. She was seen at [facility] on 3 separate occasions. States she is doing much better, she continues to have pain in her scapula area. Limited ROM. Numbness and tingling down her arm. Allergies No Known Allergies Allergy (Verified 03/22/25 13:46) Medication List - Last Reconciled 03/22/25 by Nguyen Cooley PA-C ibuprofen 800 mg PO Q8H PRN 30 days levonorgestrel (Mirena) intrauterine lidocaine 4% (Aspercreme (lidocaine)) 1 patch topical DAILY PRN HPI HPI New prob-Lt shoulder pain: Details: 49 yo female presents to the office today for pain in the left shoulder. States the pain is along the shoulder blade and it is more like a knot. She states 3 weeks ago the pain was worse but she went to the emergency department in the gave her a shot of Toradol and she was also referred to physical therapy and she states her pain has been improving. 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 Mother Colon cancer Medical history non-contributory Brother No problems noted. Sister No problems noted. Sister No problems noted. Son No problems noted. Daughter No problems noted. Maternal Grandmother HTN (hypertension) Maternal Aunt HTN (hypertension) Social History Household Members: Family Housing: House Are you a primary wound care center consultant to a significant other at home: No Do you presently have visiting nurse or other home services: No Alcohol intake: current Alcohol intake frequency: does not drink Patient Tobacco Use Status: Never used Tobacco e-Cigarette/Vaping Use: Never Used Second Hand Smoke Exposure: No Advance Directives Date on File: 01/15/24 service: No Current occupational status: employed Current occupation: RN/ right hand dominant Current occupational exposures/hazards: No Cognitive needs: No Hearing needs: No Vision needs: Yes Review of Systems Const All systems reviewed & are unremarkable except as noted in HPI and below Physical Exam Vital Signs: BMI result Body Mass Index 31.6 Const General: cooperative and no acute distress Orientation/consciousness: patient oriented x3 Resp Effort & Inspection: normal respiratory effort and able to speak in complete sentences Cardio Peripheral pulses: Peripheral pulses 2+ throughout Neuro General: patient oriented x3 Extrem Other: Left shoulder is normal to inspection she has full range of motion without pain and no deficits with rotator cuff strength. She has tenderness along the paraspinal scapular region. Neurovascularly intact Results Reviewed Results Reviewed: X-rays of the left shoulder are obtained in the office today and reviewed by me are negative for any acute or chronic abnormalities. Assessment & Plan Assessment & Plan (1) Pain of left scapula: Code(s): M89.8X1 - Other specified disorders of bone, shoulder Category: Medical Plan: We discussed options today which includes modification of activity and continuing with her therapy program. I also encouraged her to use anti-inflammatories or Tylenol to help with discomfort. She expressed understanding and will see us back as needed. Orders: Orders XR shoulder LT min 2V Today M25.512 - Pain in left shoulder Coding Level of Care Code Est Pt Level 3 (24162) Complex EM visit Add On G2211 Diagnoses Pain of left scapula M89.8X1
[2025-03-22 13:52] VITALS: BMI 31.6
== END 2025-03-22 14:30 | disposition home or self-care (01) ==
LOC: HO.HOS 13:34
PROVIDERS: PCP Internal Medicine; Visit Provider Physician Assistant
DX: M89.8X1 Other specified disorders of bone, shoulder (principal)
CPT/HCPCS: 99213

== ENCOUNTER → 2025-03-22 14:01 | Outpatient (BNV) | payer OTHER, SELFPAY | PROVIDERS: PCP Internal Medicine; Visit Provider Radiology Diagnostic Radiology | DX: M25.512 Pain in left shoulder (principal) | CPT/HCPCS: 73030 ==

== ENCOUNTER 2025-03-31 10:20 | Outpatient (REF) | payer OTHER, SELFPAY ==
[2025-03-31 16:19] LABS: Cholesterol 191 mg/dL (<200); HDL Cholesterol 39 mg/dL (>40); Triglycerides 77 mg/dL (<150)
[2025-03-31 16:26] LABS: Folate 12.6 ng/mL (> or = 4.0); Vitamin B12 554 pg/mL (200-900)
== END 2025-03-31 10:21 | disposition home or self-care (01) ==
LOC: HO.HMGCLDS 10:20
PROVIDERS: PCP Internal Medicine; Visit Provider Internal Medicine
DX: Z13.220 Encounter for screening for lipoid disorders (principal); Z00.01 Encounter for general adult medical examination with abnormal findings; Z12.4 Encounter for screening for malignant neoplasm of cervix; Z71.89 Other specified counseling; E55.9 Vitamin D deficiency, unspecified; M25.312 Other instability, left shoulder; G43.009 Migraine without aura, not intractable, without status migrainosus; Z86.0101 Personal history of adenomatous and serrated colon polyps; Z86.19 Personal history of other infectious and parasitic diseases; Z79.899 Other long term (current) drug therapy
CPT/HCPCS: 36415; 80061; 82306; 82607; 82746; 84443; 96127; 99396; 99497

== ENCOUNTER 2025-03-31 10:20 | Outpatient (AMB) | payer OTHER, SELFPAY ==
--- NOTE | 2025-03-31 10:33 | MHC.PC.OV ---
Vital Signs 03/31/25 10:38 Height 5 ft 2 in Weight 176 lb BMI 32.2 BP 124/80 Blood Pressure Location Rt brachial Position Sitting Respiration 15 Pulse 75 Pulse Source Pulse Oximeter Temp 98.1 F Temp Source Oral Pulse Oximetry (%) 98 Oxygen Delivery Method Room Air Intake Visit Reasons: Annual PE per Dr. Gomes Intake Note: Pt is here today for her PE: last mammogram 10/27/24, papsmear 01/23/21, colonscopy 03/09/21 Allergies No Known Allergies Allergy (Verified 03/31/25 10:48) Medication List - Last Reconciled 03/31/25 by Cammy Mujica MD levonorgestrel (Mirena) intrauterine lidocaine 5% 1 patch topical DAILY PRN valacyclovir 500 mg PO Q12H 3 days Tobacco use date assessed: 03/31/25 Dental Screening Dental Screen Date: 03/31/25 Did you have a dental visit in the last 12 months?: Yes Did you have a dental problem in the last 6 months where you did not have access to dental care?: No Was dental information given to patient?: Patient has dentist HPI Annual PE per Dr. Gomes HPI Details 49-year-old lady with history of migraine headache without aura, adenomatous polyp of colon, here today for her physical exam. She is up-to-date with her breast cancer screening, last done 10/11/2024 with normal findings. Up-to-date with her screening for colon cancer, last done 03/09/2021 with a tubular adenoma polyp removed by Dr. Apodaca, repeat colonoscopy due again in 2025. Her last cervical cancer screening and pelvic exam done by Dr. Dobbs in 2020 with negative findings currently on Mirena for control. Has history of genital herpes, was suppressed, takes valacyclovir as needed for outbreaks, experiences flare-ups once or twice a year, usually triggered by stress - she has Scapular dyskinesia: Has recurrent shoulder pain, managed with lidocaine patches and Tylenol Arthritis. - Vitamin D deficiency: History of deficiency with inconsistent supplementation. - Constipation: Improved with dietary adjustments to balance fiber intake. - Menopause: Confirmed by previous labs, with increased tiredness possibly due to night shifts. - Preventative care: Due for cervical cancer screening, referred to OBGYN. [facility] Medical History (Updated 03/31/25 @ 11:20 by Cammy Mujica MD) Hx of herpes genitalis History of adenomatous polyp of colon IUD (intrauterine device) in place Constipation Leukopenia Vitamin D deficiency Migraine headache without aura Irritable bowel syndrome with constipation Hx of iron deficiency anemia Skin papilloma Epidermal inclusion cyst History of positive PPD H/O tinea corporis IBS (irritable bowel syndrome) Genital herpes Obesity Surgical History Hx of colonoscopy History of local excision of skin lesion Hx of neck surgery H/O right wrist surgery Family History Father No problems noted. Mother Colon cancer Medical history non-contributory Brother No problems noted. Sister No problems noted. Sister No problems noted. Son No problems noted. Daughter No problems noted. Maternal Grandmother HTN (hypertension) Maternal Aunt HTN (hypertension) Social History Household Members: Family Housing: House Are you a primary manager care management to a significant other at home: No Do you presently have visiting nurse or other home services: No Alcohol intake: current Alcohol intake frequency: does not drink Patient Tobacco Use Status: Never used Tobacco e-Cigarette/Vaping Use: Never Used Second Hand Smoke Exposure: No Advance Directives Date on File: 01/15/24 service: No Current occupational status: employed Current occupation: RN/ right hand dominant Current occupational exposures/hazards: No Cognitive needs: No Hearing needs: No Vision needs: Yes Female Reproductive History Menstrual Other: Followed by Dr. Dobbs Questionnaire PHQ-9 Over the last 2 weeks, how often have you been bothered by any of the following problems? 1. Little interest or pleasure in doing things: not at all 2. Feeling down, depressed, or hopeless: not at all 3. Trouble falling or staying asleep, or sleeping too much: not at all 4. Feeling tired or having little energy: not at all 5. Poor appetite or overeating: not at all 6. Feeling bad about yourself - or that you are a failure or have let yourself or your family down: not at all 7. Trouble concentrating on things, such as reading the newspaper or watching television: not at all 8. Moving or speaking so slowly that other people could have noticed. Or the opposite - being so fidgety or restless that you have been moving around a lot more than usual: not at all 9. Thoughts that you would be better off or of hurting yourself in some way: not at all Total score: 0 Depression Screening Interpretation: Negative Depression Screening Done: Yes 07674 - PHQ-9 Billing: Yes Source: Developed by Drs. Jluis Padilla, Pratima Malagon, Griffin Fatima and colleagues, with an educational ailin from [employer]. Thrive Questionnaire Date Thrive assessed: 03/31/25 I am a: Patient What is your living situation today?: I have a steady place to live Within the past 12 months, did the food you bought not last and you didn't have the money to get more?: Never true Within the past 12 months, did you worry whether your food would run out before you got money to buy more?: Never true Do you have trouble paying for medicines?: No Do you have trouble getting transportation to medical appointments?: No Do you have trouble paying your heating and electricity bill?: No Do you have trouble taking care of your child, family member or friend?: No Do you have trouble with day-to-day activities such as bathing, preparing meals, shopping, managing finances, etc.?: No Are you currently unemployed and looking for a job?: No Are you interested in more education?: No Please select the resources that you would like help with: None Currently or been in a relationship where the following occur: No concerns reported THRIVE Score: 0 AUDIT C Alcohol Use Questionnaire (AUDIT-C) 1. How often do you have a drink containing alcohol?: Never Total Score: 0 DIAMOND-7 AMB Questionnaire DIAMOND-7 Date DIAMOND - 7 assessed: 03/31/25 Feeling nervous, anxious, or on edge: 0 = Not at all Not being able to stop or control worryin = Not at all Worrying too much about different things: 0 = Not at all Trouble relaxin = Not at all Being so restless that it is hard to sit still: 0 = Not at all Becoming easily annoyed or irritable: 0 = Not at all Feeling afraid as if something awful might happen: 0 = Not at all Total DIAMOND-7 score (0-4 normal; 5-9 mild; 10-14 moderate; 15-21 severe): 0 Source: Developed by Drs. Jluis Padilla, Pratima Malagon, Griffin Fatima and colleagues, with an educational ailin from [employer]. DIAMOND-7 Assessment Billing DIAMOND-7 Assessment Tool: DIAMOND-7 Assessment 36337 Review of Systems Const All systems reviewed & are unremarkable except as noted in HPI and below Denies fatigue, Denies fever(s), Denies lethargy and Denies malaise Eyes Details: Goes to [facility] Denies itchy eyes and Reports requires corrective lenses ENT Details: Gets dental prophylaxis every six-months Reports no additional complaints Card Reports no additional complaints Resp Reports no additional complaints GI Denies abdominal pain, Denies melena, Denies bloating and Denies hematochezia Reports no additional complaints Musc Reports as per HPI Skin/Breast Denies rash Neuro Reports no additional complaints Psych Denies abnormal sleep pattern, Denies anxiety and Denies depression Endo Denies fatigue Zach/Lymph Reports no additional complaints Aller/Immun Denies itchy eyes Physical exam (Primary Care) Vital Signs: Last Vital Signs Temp 98.1 F 03/31/25 10:38 Pulse 75 03/31/25 10:38 Resp 15 03/31/25 10:38 BP 124/80 03/31/25 10:38 Pulse Ox 98 03/31/25 10:38 Oxygen Delivery Method Room Air 03/31/25 10:38 BMI result Body Mass Index 32.2 Tobacco/Smoking Status: Tobacco use Status Tobacco use date assessed 03/31/25 03/31/25 10:42 Patient Tobacco Use Status Never used Tobacco 03/31/25 10:33 e-Cigarette/Vaping Use Never Used 03/31/25 10:33 PHQ-9: PHQ-9 Score PHQ-9: Total score 0 03/31/25 11:26 Depression Screening Interpretation: Negative Thrive Assessment: Date of Thrive Assessment Date Thrive assessed 03/31/25 03/31/25 10:42 Currently or been in a relationship where the following occur: No concerns reported Advance Care Planning discussion: Completed/Scanned Date of discussion: 03/31/25 Who was present: Patient Forms completed: Health Care Proxy Time spent: 16-45 minutes Actual minutes spent: 2 Const General: comfortable and no acute distress Nutritional Appearance: obese Orientation/consciousness: patient oriented x3 HENMT Head: Yes normocephalic Ears: external ears normal, TM's normal bilaterally and EAC's normal General nose exam: Normal external nose present Face and sinus: Yes face symmetric Mouth: Normal oral and palatal mucosa present and moist mucous membranes Neck Neck: Yes full ROM, Yes no lymphadenopathy and Yes supple Resp Effort & Inspection: normal respiratory effort and able to speak in complete sentences Auscultation: clear to auscultation bilaterally Cardio Rate: regular rate Rhythm: regular rhythm Heart sounds: S1 normal heart sound present and S2 normal heart sound present GI Palpation (GI): Soft to palpation, nontender, no guarding and no masses Auscultation: normal bowel sounds Back/Spine/Pelvis Other: Slight tenderness on palpation over left scapular area Skin General skin exam: no rashes or lesions noted Neuro General: patient oriented x3, gait normal, tone normal, Normal light touch and pain sensation and no focal motor deficits Extrem Other: Pain and listed on doing overhead motion with right arm more than 150 degrees, and on right shoulder extension General: Yes normal to inspection, Yes no joint enlargement, Yes no pedal edema, Yes no calf tenderness and Yes normal gait Psych Appearance: grossly normal Mental Status: mental status grossly normal Speech and movement: Normal speech and movement present Affect: normal affect Results Reviewed Results Reviewed: Name: Oanh Anaya Age/Sex: 49/F : 1975 Unit#: [id number] Attend Dr: Eva Templeton MD Re01/27/25 Status: DEP [facility]: SPEC : [id number] GERARDO: 01/27/25 STATUS: COMP REQ : [id number] RECD: 01/27/[address]: Mark Carpenter COMP: 01/27/25 ENTERED: 01/27/[address] [facility] DR: Cammy Mujica MD ORDERED: CBC Auto Diff Test Result Flag Reference WBC 5.2 4.8-10.8 X10*3/uL RBC 4.15 L 4.20-5.50 X10*6/uL HGB 12.8 12.0-16.0 g/dl HCT 38.3 37.0-47.0 % MCV 92.3 80.0-98.0 fL MCH 30.8 27.0-33.0 pg MCHC 33.4 31.0-35.0 g/dl RDW 12.4 11.0-16.0 % PLT 276 160-400 X10*3/uL MPV 10.2 9.4-12.3 fL Neut Pct Auto 37.0 L 45-73 % ImGran Pct Auto 0.2 0.0-0.4 % Lymp Pct Auto 53.4 H 20-40 % Bowman Pct Auto 6.7 2-11 % Eos Pct Auto 1.9 0-4 % Baso Pct Auto 0.8 0-2 % NRBC Pct Auto 0.0 0.0-0.2 /100WBC ANC Neut Abs # 1.9 L 2.0-8.3 x10*3/uL ImGran Abs Auto 0.01 0.00-0.03 X10*3/uL Lymph Abs Auto 2.8 1.2-4.9 X10*3/uL Bowman Abs Auto 0.4 0.1-1.2 X10*3/uL Eos Abs Auto 0.1 0.0-0.4 X10*3/uL Baso Abs Auto 0.0 0.0-0.2 X10*3/uL NRBC Abs Auto 0.000 0.0-0.012 X10*3/uL Coding Level of Care Code Est Pt Prev Care 40-64y(71762) Diagnoses Annual visit for general adult medical examination with abnormal findings Z00.01 Screening for malignant neoplasm of cervix Z12.4 Vitamin D deficiency E55.9 Hx of herpes genitalis Z86.19 Migraine headache without aura G43.009 History of adenomatous polyp of colon Z86.0101 Dyskinesis of left scapula M25.312 Advance directive discussed with patient Z71.89 Additional Codes PHQ-9 - 10021 - PHQ-9 Billing: Yes ([id number]) DIAMOND-7 Assessment Billing - DIAMOND-7 Assessment Tool: DIAMOND-7 Assessment 21678 ([id number]) Vital Signs *Quality* - Advance Care Planning discussion: Completed/Scanned ([id number]) Vital Signs *Quality* - Time spent: 16-45 minutes ([id number]) Assessment & Plan Assessment & Plan (1) Annual visit for general adult medical examination with abnormal findings: Code(s): Z00.01 - Encounter for general adult medical examination with abnormal findings (2) Screening for malignant neoplasm of cervix: Code(s): Z12.4 - Encounter for screening for malignant neoplasm of cervix (3) Vitamin D deficiency: Code(s): E55.9 - Vitamin D deficiency, unspecified Category: Medical (4) Hx of herpes genitalis: Code(s): Z86.19 - Personal history of other infectious and parasitic diseases Category: Medical (5) Migraine headache without aura: Code(s): G43.009 - Migraine without aura, not intractable, without status migrainosus Category: Medical (6) History of adenomatous polyp of colon: Code(s): Z86.0101 - Personal history of adenomatous and serrated colon polyps Category: Medical (7) Dyskinesis of left scapula: Code(s): M25.312 - Other instability, left shoulder (8) Advance directive discussed with patient: Code(s): Z71.89 - Other specified counseling Plan: Initiated the conversation about Advanced Directives. Advanced Directives help patients prepare for current and future decisions about their medical treatment and place of care. Discussed with patient that it is a process where a patients current condition and prognosis are reviewed, their wishes for information regarding their illness are elicited, and likely medical dilemmas are presented and options discussed. Healthcare proxy form completed today. The form can be amended as needed, reviewed yearly and make changes as needed Plan The patient should continue Valacyclovir for genital herpes outbreaks and consider lysine supplementation. Early treatment initiation is advised upon noticing symptoms. For scapular dyskinesia, lidocaine patches and Tylenol Arthritis are recommended, along with physical therapy to enhance shoulder mobility. Vitamin D supplementation should be maintained, and dietary adjustments are suggested to manage constipation effectively. Menopause-related tiredness may benefit from improved sleep hygiene and lifestyle changes. Preventative measures include a cervical cancer screening referral and updating vaccinations, including a tetanus booster. Fasting labs ordered today to check lipids, thyroid levels, vitamin B12 and vitamin-D level Patient was informed and verbally consented to the use of an ambient scribe for clinic note documentation during this visit. Orders: Orders Vitamin D 25-OH Total 03/31/25 Z13.220 - Encounter for screening for lipoid disorders, E55.9 - Vitamin D deficiency, unspecified, Z00.01 - Encounter for general adult medical examination with abnormal findings, Z71.89 - Other specified counseling TSH reflex Free T4 03/31/25 Z13.220 - Encounter for screening for lipoid disorders, E55.9 - Vitamin D deficiency, unspecified, Z00.01 - Encounter for general adult medical examination with abnormal findings, Z71.89 - Other specified counseling Vitamin B12 and Folate 03/31/25 Z13.220 - Encounter for screening for lipoid disorders, E55.9 - Vitamin D deficiency, unspecified, Z00.01 - Encounter for general adult medical examination with abnormal findings, Z71.89 - Other specified counseling Lipid Panel 03/31/25 Z13.220 - Encounter for screening for lipoid disorders, E55.9 - Vitamin D deficiency, unspecified, Z00.01 - Encounter for general adult medical examination with abnormal findings, Z71.89 - Other specified counseling Referrals SHEET [employer] E[employer]OR Referral Z12.4 - Encounter for screening for malignant neoplasm of cervix, Z97.5 - Presence of (intrauterine) contraceptive device Medications: New lidocaine 5% leave on most painful area for up to 12 hrs 1 patch topical DAILY PRN 30 ea 0RF left upper back pain valacyclovir Take at 1st sign of symptoms of genital herpes 500 mg PO Q12H 6 tabs 1RF 3 days Discontinued lidocaine 4% Discontinued Reason: Duplicate 1 patch topical DAILY PRN 10 ea 0RF pain
[2025-03-31 10:38] VITALS: BP 124/80; PULSE 75; RESP 15; TEMP 36.7; O2SAT 98; BMI 32.2
== END 2025-03-31 11:16 | disposition home or self-care (01) ==
LOC: HO.HMCC 10:21
PROVIDERS: PCP Internal Medicine; Visit Provider Internal Medicine
DX: Z00.01 Encounter for general adult medical examination with abnormal findings (principal); Z12.4 Encounter for screening for malignant neoplasm of cervix; E55.9 Vitamin D deficiency, unspecified; Z86.19 Personal history of other infectious and parasitic diseases; G43.009 Migraine without aura, not intractable, without status migrainosus; Z86.0101 Personal history of adenomatous and serrated colon polyps; M25.312 Other instability, left shoulder; Z71.89 Other specified counseling; Z00.00 Encounter for general adult medical examination without abnormal findings

== ENCOUNTER 2025-05-12 09:15 | Outpatient (AMB) | payer OTHER, SELFPAY ==
[2025-05-12 09:46] VITALS: BP 128/94; PULSE 76; RESP 16; TEMP 36.4; O2SAT 97; BMI 32.2
--- NOTE | 2025-05-12 09:46 | A.OFFPC_ITS ---
Vital Signs 05/12/25 09:46 Height 5 ft 2 in Weight 176 lb BMI 32.2 BP 128/94 H Blood Pressure Location Lt brachial Position Sitting Respiration 16 Pulse 76 Pulse Source Pulse Oximeter Temp 97.6 F Temp Source Oral Pulse Oximetry (%) 97 Oxygen Delivery Method Room Air Intake Visit Reasons: left breast pain Intake Note: Pt is here today for Lt breast pain [employer] Network Architect Required: No Allergies No Known Allergies Allergy (Verified 05/12/25 10:10) Medication List - Last Reconciled 05/12/25 by Cammy Mujica MD levonorgestrel (Mirena) intrauterine lidocaine 5% 1 patch topical DAILY PRN valacyclovir 500 mg PO Q12H 3 days Tobacco use date assessed: 05/12/25 Dental Screening Dental Screen Date: 05/12/25 HPI left breast pain HPI Details The patient is a 49-year-old female presenting with chest pain suspected to be costochondritis. The pain is localized to the sternum and has been intermittent, with episodes of severe pain that come and go. The patient denies any history of trauma or falls, and there is no associated cough, sneezing, or heavy lifting that exacerbates the pain. The patient reports that the pain does not radiate and is not associated with heartburn or other gastrointestinal symptoms. She has been managing the pain with Tylenol, which provides relief, suggesting an inflammatory component to the pain. The patient has a history of using an intrauterine device (IUD) for contraception, which was placed after her son was born 13 years ago. She has been advised that the IUD may help with menopausal symptoms and is considering its removal. The patient is due for cervical cancer screening and has encountered issues with previous referrals, necessitating a new referral for this preventative care measure. HPI Comments History of Present Illness Details The patient is a 49-year-old female complaining of intermittent chest pain .. The pain is localized to the sternum and has been intermittent, with episodes of severe pain that come and go. The patient denies any history of trauma or falls, and there is no associated cough, sneezing, or heavy lifting that exacerbates the pain. The patient reports that the pain does not radiate and is not associated with heartburn or other gastrointestinal symptoms. She has been managing the pain with Tylenol, which provides relief The patient has a history of using an intrauterine device (IUD) for contr aception, which was placed after her son was born 13 years ago. She has been advised that the IUD may help with menopausal symptoms and is considering its removal. The patient is due for cervical cancer screening and has encountered issues with previous referrals, necessitating a new referral for this preventative care measure. [facility] Medical History (Updated 05/12/25 @ 10:20 by Cammy Mujica MD) Costochondritis Hx of herpes genitalis History of adenomatous polyp of colon IUD (intrauterine device) in place Constipation Leukopenia Vitamin D deficiency Migraine headache without aura Irritable bowel syndrome with constipation Hx of iron deficiency anemia Skin papilloma Epidermal inclusion cyst History of positive PPD H/O tinea corporis IBS (irritable bowel syndrome) Genital herpes Obesity Surgical History Hx of colonoscopy History of local excision of skin lesion Hx of neck surgery H/O right wrist surgery Family History Father No problems noted. Mother Colon cancer Medical history non-contributory Brother No problems noted. Sister No problems noted. Sister No problems noted. Son No problems noted. Daughter No problems noted. Maternal Grandmother HTN (hypertension) Maternal Aunt HTN (hypertension) Social History Household Members: Family Housing: House Are you a primary manager career to a significant other at home: No Do you presently have visiting nurse or other home services: No Alcohol intake: current Alcohol intake frequency: does not drink Patient Tobacco Use Status: Never used Tobacco e-Cigarette/Vaping Use: Never Used Second Hand Smoke Exposure: No Advance Directives Date on File: 01/15/24 service: No Current occupational status: employed Current occupation: RN/ right hand dominant Current occupational exposures/hazards: No Cognitive needs: No Hearing needs: No Vision needs: Yes Questionnaire PHQ-9 Over the last 2 weeks, how often have you been bothered by any of the following problems? 1. Little interest or pleasure in doing things: not at all 2. Feeling down, depressed, or hopeless: not at all 3. Trouble falling or staying asleep, or sleeping too much: not at all 4. Feeling tired or having little energy: not at all 5. Poor appetite or overeating: not at all 6. Feeling bad about yourself - or that you are a failure or have let yourself or your family down: not at all 7. Trouble concentrating on things, such as reading the newspaper or watching television: not at all 8. Moving or speaking so slowly that other people could have noticed. Or the opposite - being so fidgety or restless that you have been moving around a lot more than usual: not at all 9. Thoughts that you would be better off or of hurting yourself in some way: not at all Total score: 0 Depression Screening Interpretation: Negative Depression Screening Done: Yes Source: Developed by Drs. Jluis Padilla, Pratima Malagon, Griffin Fatima and colleagues, with an educational ailin from [employer]. Thrive Questionnaire Date Thrive assessed: 03/31/25 I am a: Patient What is your living situation today?: I have a steady place to live Within the past 12 months, did the food you bought not last and you didn't have the money to get more?: Never true Within the past 12 months, did you worry whether your food would run out before you got money to buy more?: Never true Do you have trouble paying for medicines?: No Do you have trouble getting transportation to medical appointments?: No Do you have trouble paying your heating and electricity bill?: No Do you have trouble taking care of your child, family member or friend?: No Do you have trouble with day-to-day activities such as bathing, preparing meals, shopping, managing finances, etc.?: No Are you currently unemployed and looking for a job?: No Are you interested in more education?: No Please select the resources that you would like help with: None Currently or been in a relationship where the following occur: No concerns reported THRIVE Score: 0 AUDIT C Alcohol Use Questionnaire (AUDIT-C) 1. How often do you have a drink containing alcohol?: Never Total Score: 0 DIAMOND-7 AMB Questionnaire DIAMOND-7 Date DIAMOND - 7 assessed: 03/31/25 Feeling nervous, anxious, or on edge: 0 = Not at all Not being able to stop or control worryin = Not at all Worrying too much about different things: 0 = Not at all Trouble relaxin = Not at all Being so restless that it is hard to sit still: 0 = Not at all Becoming easily annoyed or irritable: 0 = Not at all Feeling afraid as if something awful might happen: 0 = Not at all Total DIAMOND-7 score (0-4 normal; 5-9 mild; 10-14 moderate; 15-21 severe): 0 Source: Developed by Drs. Jluis Padilla, Pratima Malagon, Griffin Fatima and colleagues, with an educational ailin from [employer]. Review of Systems Const All systems reviewed & are unremarkable except as noted in HPI and below Denies fatigue, Denies fever(s), Denies lethargy and Denies malaise Eyes Details: Goes to [facility] Denies itchy eyes and Reports requires corrective lenses ENT Details: Gets dental prophylaxis every six-months Reports no additional complaints Card Reports no additional complaints Resp Reports no additional complaints GI Denies abdominal pain, Denies melena, Denies bloating and Denies hematochezia Reports no additional complaints Musc Reports as per HPI Skin/Breast Denies rash Neuro Reports no additional complaints Psych Denies abnormal sleep pattern, Denies anxiety and Denies depression Endo Denies fatigue Zach/Lymph Reports no additional complaints Aller/Immun Denies itchy eyes Physical exam (Primary Care) Vital Signs: Last Vital Signs Temp 97.6 F 05/12/25 09:46 Pulse 76 05/12/25 09:46 Resp 16 05/12/25 09:46 BP 128/94 H 05/12/25 09:46 Pulse Ox 97 05/12/25 09:46 Oxygen Delivery Method Room Air 05/12/25 09:46 BMI result Body Mass Index 32.2 Tobacco/Smoking Status: Tobacco use Status Tobacco use date assessed 05/12/25 05/12/25 09:48 Patient Tobacco Use Status Never used Tobacco 05/12/25 09:48 e-Cigarette/Vaping Use Never Used 05/12/25 09:48 PHQ-9: PHQ-9 Score PHQ-9: Total score 0 05/12/25 10:10 Depression Screening Interpretation: Negative Thrive Assessment: Date of Thrive Assessment Date Thrive assessed 03/31/25 05/12/25 09:48 Currently or been in a relationship where the following occur: No concerns reported Const General: comfortable and no acute distress Nutritional Appearance: obese Orientation/consciousness: patient oriented x3 HENMT Ears: external ears normal General nose exam: Normal external nose present Face and sinus: Yes face symmetric Mouth: moist mucous membranes Neck Neck: Yes full ROM, Yes no lymphadenopathy and Yes supple Chest Other: Slight tenderness on deep palpation over sternum, no gross bone deformity seen Resp Auscultation: clear to auscultation bilaterally Cardio Rate: regular rate Rhythm: regular rhythm Heart sounds: S1 normal heart sound present and S2 normal heart sound present GI Palpation (GI): Soft to palpation, nontender, no guarding and no masses Auscultation: normal bowel sounds Skin General skin exam: no rashes or lesions noted Neuro General: patient oriented x3, gait normal, tone normal, Normal light touch and pain sensation and no focal motor deficits Extrem General: Yes normal to inspection, Yes no joint enlargement, Yes no pedal edema, Yes no calf tenderness and Yes normal gait Coding Level of Care Code Est Pt Level 4 (38289) Diagnoses Costochondritis M94.0 IUD (intrauterine device) in place Z97.5 Encounter for screening for malignant neoplasm of cervix Z12.4 Assessment & Plan Assessment & Plan (1) Costochondritis: Code(s): M94.0 - Chondrocostal junction syndrome [Tietze] Category: Medical (2) IUD (intrauterine device) in place: Code(s): Z97.5 - Presence of (intrauterine) contraceptive device Category: Medical (3) Encounter for screening for malignant neoplasm of cervix: Code(s): Z12.4 - Encounter for screening for malignant neoplasm of cervix Plan chest pain is likely due to costochondritis, an inflammation of the cartilage where the ribs attach to the sternum. We reviewed the use of Tylenol for pain management and the potential benefit of Advil ointment for topical relief. I advised her to monitor her symptoms and return if they persist or worsen, at which point further testing may be necessary. We also discussed the management of her IUD and the need for cervical cancer screening, with plans to refer her to appropriate specialists for these issues. Patient was informed and verbally consented to the use of an ambient scribe for clinic note documentation during this visit. Orders: Referrals [employer] EDGE OPERATOR Referral Z12.4 - Encounter for screening for malignant neoplasm of cervix, Z97.5 - Presence of (intrauterine) contraceptive device
== END 2025-05-12 14:09 | disposition home or self-care (01) ==
LOC: HO.HMCC 09:16
PROVIDERS: PCP Internal Medicine; Visit Provider Internal Medicine
DX: M94.0 Chondrocostal junction syndrome [Tietze] (principal); Z97.5 Presence of (intrauterine) contraceptive device; Z12.4 Encounter for screening for malignant neoplasm of cervix

== ENCOUNTER → 2025-05-12 09:15 | Outpatient (BNVA) | payer OTHER, SELFPAY | PROVIDERS: PCP Internal Medicine; Visit Provider Internal Medicine | DX: M94.0 Chondrocostal junction syndrome [Tietze] (principal); Z97.5 Presence of (intrauterine) contraceptive device | CPT/HCPCS: 99212 ==

== ENCOUNTER 2025-06-28 10:57 | Outpatient (REF) | payer OTHER, SELFPAY ==
--- NOTE | ~2025-06-28 | XR_ITS ---
EXAMINATION: XR TEMPOROMANDIBULAR JOINT, BILATERAL CLINICAL INFORMATION: M26.629 - Arthralgia of temporomandibular joint, unspecified side ; pain in right TMJ, worse with opening mouth and turning neck. COMPARISON: None available. TECHNIQUE: 2 views of the left temporomandibular joint and 2 views of the right temporomandibular joint were obtained. FINDINGS: On the left, the left mandibular condyle has normal morphology and sits normally within the glenoid in the closed mouth position. In the open-mouth position there appears to be normal anterior translation. On the right, the right mandibular condyle has normal morphology and sits normally within the glenoid in the closed mouth position. In the open-mouth position, there appears to be normal anterior translation. XR/XR TMJ BI IMPRESSION: Essentially normal bilateral temporomandibular joints. Normal anterior translation on the open-mouth positions. If further investigation is needed, MRI of the TM joints is far more sensitive and specific. Electronically signed by: Malik Guthrie MD 06/28/2025 01:48 PM [facility]
== END 2025-06-28 10:58 | disposition home or self-care (01) ==
LOC: HO.HMGCX 10:57
PROVIDERS: PCP Internal Medicine; Visit Provider Internal Medicine
DX: M26.629 Arthralgia of temporomandibular joint, unspecified side (principal); Z79.899 Other long term (current) drug therapy; Z86.0101 Personal history of adenomatous and serrated colon polyps
CPT/HCPCS: 70330; 99212

== ENCOUNTER 2025-06-28 10:57 | Outpatient (AMB) | payer OTHER, SELFPAY ==
--- NOTE | 2025-06-28 11:12 | MHC.PC.OV ---
Vital Signs 06/28/25 11:17 Height 5 ft 2 in Weight 178 lb BMI 32.6 BP 136/80 Blood Pressure Location Rt brachial Position Sitting Respiration 16 Pulse 75 Pulse Source Pulse Oximeter Temp 97.7 F Temp Source Oral Pulse Oximetry (%) 99 Oxygen Delivery Method Room Air Intake Visit Reasons: Lt side of face pain, hard to chew Intake Note: Pt is here today c/o Lt side of face pain, hard to chew Grocery Store Bagger Required: No Allergies No Known Allergies Allergy (Verified 06/28/25 11:29) Medication List - Last Reconciled 06/28/25 by Cammy Mujica MD levonorgestrel (Mirena) intrauterine lidocaine 5% 1 patch topical DAILY PRN valacyclovir 500 mg PO Q12H 3 days Tobacco use date assessed: 06/28/25 Dental Screening Dental Screen Date: 05/12/25 HPI HPI Comments History of Present Illness Details The patient is a 49-year-old female presenting for evaluation of right jaw pain and abdominal pain. The patient reports pain and swelling over the right temporomandibular joint (TMJ) area. She denies lockjaw or difficulty chewing but experiences pain upon wide mouth opening and when turning her head to the left, which affects her while driving. For the past few nights, she has been taking 800 mg ibuprofen for relief. She has a history of an abscess in the same area a few years ago, which was drained and has left a superficial keloid that is not currently painful. The patient also reports recurrent abdominal pain, which she relates to a known history of slow transit constipation. She is managing her bowel function with soursop leaf tea, papaya, and sweet potatoes and denies having pellet-like stools. She had her last colonoscopy was in 2020, during which a precancerous polyp was removed, necessitating a five-year screening interval. Her mother was diagnosed with colon cancer at age 69. She also has an IUD that was placed about seven years ago and is due for removal. [facility] Medical History Costochondritis Hx of herpes genitalis History of adenomatous polyp of colon IUD (intrauterine device) in place Constipation Leukopenia Vitamin D deficiency Migraine headache without aura Irritable bowel syndrome with constipation Hx of iron deficiency anemia Skin papilloma Epidermal inclusion cyst History of positive PPD H/O tinea corporis IBS (irritable bowel syndrome) Genital herpes Obesity Surgical History Hx of colonoscopy History of local excision of skin lesion Hx of neck surgery H/O right wrist surgery Family History Father No problems noted. Mother Colon cancer Medical history non-contributory Brother No problems noted. Sister No problems noted. Sister No problems noted. Son No problems noted. Daughter No problems noted. Maternal Grandmother HTN (hypertension) Maternal Aunt HTN (hypertension) Social History Household Members: Family Housing: House Are you a primary intensive care anaesthetist to a significant other at home: No Do you presently have visiting nurse or other home services: No Alcohol intake: current Alcohol intake frequency: does not drink Patient Tobacco Use Status: Never used Tobacco e-Cigarette/Vaping Use: Never Used Second Hand Smoke Exposure: No Advance Directives Date on File: 01/15/24 service: No Current occupational status: employed Current occupation: RN/ right hand dominant Current occupational exposures/hazards: No Cognitive needs: No Hearing needs: No Vision needs: Yes Female Reproductive History Menstrual control method: progestin IUCD Questionnaire PHQ-9 Over the last 2 weeks, how often have you been bothered by any of the following problems? 1. Little interest or pleasure in doing things: not at all 2. Feeling down, depressed, or hopeless: not at all 3. Trouble falling or staying asleep, or sleeping too much: not at all 4. Feeling tired or having little energy: not at all 5. Poor appetite or overeating: not at all 6. Feeling bad about yourself - or that you are a failure or have let yourself or your family down: not at all 7. Trouble concentrating on things, such as reading the newspaper or watching television: not at all 8. Moving or speaking so slowly that other people could have noticed. Or the opposite - being so fidgety or restless that you have been moving around a lot more than usual: not at all 9. Thoughts that you would be better off or of hurting yourself in some way: not at all Total score: 0 Depression Screening Interpretation: Negative Depression Screening Done: Yes Source: Developed by Drs. Jluis Padilla, Griffin Martino and colleagues, with an educational ailin from [employer]. Thrive Questionnaire Date Thrive assessed: 03/31/25 I am a: Patient What is your living situation today?: I have a steady place to live Within the past 12 months, did the food you bought not last and you didn't have the money to get more?: Never true Within the past 12 months, did you worry whether your food would run out before you got money to buy more?: Never true Do you have trouble paying for medicines?: No Do you have trouble getting transportation to medical appointments?: No Do you have trouble paying your heating and electricity bill?: No Do you have trouble taking care of your child, family member or friend?: No Do you have trouble with day-to-day activities such as bathing, preparing meals, shopping, managing finances, etc.?: No Are you currently unemployed and looking for a job?: No Are you interested in more education?: No Please select the resources that you would like help with: None Currently or been in a relationship where the following occur: No concerns reported THRIVE Score: 0 AUDIT C Alcohol Use Questionnaire (AUDIT-C) 1. How often do you have a drink containing alcohol?: Never Total Score: 0 DIAMOND-7 AMB Questionnaire DIAMOND-7 Date DIAMOND - 7 assessed: 03/31/25 Feeling nervous, anxious, or on edge: 0 = Not at all Not being able to stop or control worryin = Not at all Worrying too much about different things: 0 = Not at all Trouble relaxin = Not at all Being so restless that it is hard to sit still: 0 = Not at all Becoming easily annoyed or irritable: 0 = Not at all Feeling afraid as if something awful might happen: 0 = Not at all Total DIAMOND-7 score (0-4 normal; 5-9 mild; 10-14 moderate; 15-21 severe): 0 Source: Developed by Pratima Tovar Kurt Kroenke and colleagues, with an educational ailin from [employer]. Review of Systems Const All systems reviewed & are unremarkable except as noted in HPI and below Physical exam (Primary Care) Vital Signs: Last Vital Signs Temp 97.7 F 06/28/25 11:17 Pulse 75 06/28/25 11:17 Resp 16 06/28/25 11:17 BP 136/80 06/28/25 11:17 Pulse Ox 99 06/28/25 11:17 Oxygen Delivery Method Room Air 06/28/25 11:17 BMI result Body Mass Index 32.6 Tobacco/Smoking Status: Tobacco use Status Tobacco use date assessed 06/28/25 06/28/25 11:14 Patient Tobacco Use Status Never used Tobacco 06/28/25 11:14 e-Cigarette/Vaping Use Never Used 06/28/25 11:14 PHQ-9: PHQ-9 Score PHQ-9: Total score 0 06/28/25 11:47 Depression Screening Interpretation: Negative Thrive Assessment: Date of Thrive Assessment Date Thrive assessed 03/31/25 06/28/25 11:14 Currently or been in a relationship where the following occur: No concerns reported Narrative - HEENT: Tenderness to palpation over right temporomandibular joint (TMJ). - Pain reproduced with mouth opening. - Otoscopic exam reveals no abnormalities in the ear canal. - Neck: Pain with active rotation of the head to the left. - Abdomen: Soft, non-tender to palpation. - No bulging or hernia appreciated. Coding Level of Care Code Est Pt Level 4 (13197) Diagnoses Arthralgia of temporomandibular joint M26.629 History of adenomatous polyp of colon Z86.0101 Assessment & Plan Assessment & Plan (1) Arthralgia of temporomandibular joint: Code(s): M26.629 - Arthralgia of temporomandibular joint, unspecified side (2) History of adenomatous polyp of colon: Code(s): Z86.0101 - Personal history of adenomatous and serrated colon polyps Category: Medical Plan 1. Right Temporomandibular Joint (TMJ) Pain The patient's symptoms of localized pain, swelling, and exacerbation with mouth opening and head turning are consistent with TMJ disorder. Plan includes an X-ray of the right TMJ to be done today. The patient will try topical ibuprofen ointment massaged onto the joint for pain control instead of oral ibuprofen. The option for physical therapy was discussed, and the patient has opted to try the topical treatment first. 2. Colon Cancer Screening The patient is due for a follow-up colonoscopy next year (2025) based on a 5-year interval after a precancerous polyp was removed in 2020. A referral will be placed now for a GI consultation to facilitate scheduling. This is indicated due to her personal history of a precancerous polyp and a family history of colon cancer in her mother. 3. Intrauterine Device (IUD) Management The patient's IUD is approximately seven years old and needs to be removed. An appointment will be scheduled for this procedure. 4. Slow Transit Constipation and Abdominal Pain This is a chronic condition that will be addressed during the upcoming GI consultation. The patient is currently managing her symptoms through diet. Patient was informed and verbally consented to the use of an ambient scribe for clinic note documentation during this visit. Orders: Orders XR TMJ BI 06/28/25 M26.629 - Arthralgia of temporomandibular joint, unspecified side Referrals Gastroenterology Referral Z86.0101 - Personal history of adenomatous and serrated colon polyps
[2025-06-28 11:17] VITALS: BP 136/80; PULSE 75; RESP 16; TEMP 36.5; O2SAT 99; BMI 32.6
== END 2025-06-28 12:21 | disposition home or self-care (01) ==
PROVIDERS: PCP Internal Medicine; Visit Provider Internal Medicine
DX: M26.629 Arthralgia of temporomandibular joint, unspecified side (principal); Z86.0101 Personal history of adenomatous and serrated colon polyps

== ENCOUNTER → 2025-06-28 11:58 | Outpatient (BNV) | payer OTHER, SELFPAY | PROVIDERS: PCP Internal Medicine; Visit Provider Radiology Diagnostic Radiology | DX: M26.621 Arthralgia of right temporomandibular joint (principal) | CPT/HCPCS: 70330 ==